=== PATIENT | male | born 1990 | race Caucasian/White ===

== ENCOUNTER 2020-11-23 21:44 | Emergency (ER) | payer MEDICAID ==
[2020-11-23] MEDS ORDERED: diphenhydrAMINE 50 MG/ML SDV IVPUSH ONE (22:26)
[2020-11-23] MEDS ORDERED: Benztropine 1 MG Tab PO ONE (23:10)
[2020-11-23] MEDS ORDERED: Acetaminophen 500 MG Tab PO ONE (23:13)
--- NOTE | 2020-11-23 23:14 | EDM.PDOC ---
ED HPI GENERAL MEDICAL PROBLEM - General Chief Complaint: General Time Seen by Provider: 11/23/20 22:13 - History of Present Illness INITIAL COMMENTS - FREE TEXT/NARRATIVE: CHIEF COMPLAINT(S): "Fucking pain" HISTORY OF PRESENT ILLNESS: This is a 22-year-old man and with a past medical history of anxiety, ADHD, delusional disorder, PTSD, and borderline personality disorder who comes to the emergency department with a chief complaint of "Fucking pain." The patient states that he is experiencing "Fucking pain" all over his body and feels like he is locking up and experiencing pain. He states that he does not know what it feels like. He cannot explain if it is dull, sharp, achy. He states that he thinks it is because of his benzodiazepines. He states that they have been slowly tapering off his clonazepam. He states that he is currently taking 0.5 mg twice a day. He has not missed any doses. He states that he follows up with [facility]. He states in addition to the clonazepam he takes Invega, prazosin, and clonidine. Patient denies any fever, chills, chest pain, shortness of breath, abdominal pain, nausea or vomiting. He denies any lower extremity edema. Denies any other symptoms. REVIEW OF SYSTEMS: Constitutional: Denies fever, chills. Eyes: Denies eye pain Ears, Nose, Mouth, & Throat: Denies earache Cardiovascular: Denies chest pain Respiratory: Denies shortness of breath Gastrointestinal: Denies Nausea, vomiting, diarrhea, hematochezia. Genitourinary: Denies hematuria Skin:Denies a rash MSK: Positive for total body pain. Neurological: Denies blurred vision Psychiatric: Denies SI, HI PAST MEDICAL HISTORY: As per history of present illness and as reviewed below otherwise noncontributory. SURGICAL HISTORY: As per history of present illness and as reviewed below otherwise noncontributory. SOCIAL HISTORY: As per history of present illness and as reviewed below otherwise noncontributory. FAMILY HISTORY: As per history of present illness and as reviewed below otherwise noncontributory. EXAMINATION OF ORGAN SYSTEMS/BODY AREAS: Constitutional: Blood pressure is 131/80, heart rate 98, respiratory rate 18 with an oxygen saturation of 96% on room air. Temperature 36.1 General: Young man who does not appear to be in acute distress but is moving constantly Psychiatric: Appropriate mood and affect. Denies SI, HI. Does not appear to be responding to internal stimuli. Cooperative. Eyes: No scleral icterus or conjunctival erythema pupils are 4 mm and reactive bilaterally. No nystagmus noted. ENMT: Moist mucous membranes. No pharyngeal erythema no lip smacking. Tongue protrudes midline. No tongue fasciculations or tremors. Cardiovascular: Regular, rate, and rhythm. No gallops, murmurs, or rubs. Bilateral upper extremity pulses symmetric and intact. No peripheral edema. No JVD. Respiratory: Lungs clear to auscultation bilaterally. No wheezes, rales, or rhonchi. Gastrointestinal: Soft, non-tender, non-distended. Normoactive bowel sounds Genitourinary: No suprapubic tenderness Musculoskeletal: Normal range of motion. The patient has rhythmic movements of his hands and lower legs where he keeps rubbing them together. Skin: No lesions or abrasions. Neurological: Alert, GCS 15 strength and sensation grossly intact in upper and lower extremities bilaterally. Gait is normal. MEDICAL DECISION MAKING AND COURSE IN THE ED WITH INTERPRETATION/REVIEW OF DIAGNOSTIC STUDIES: This is a 22-year-old man and with a past medical history of anxiety, ADHD, delusional disorder, PTSD, and borderline personality disorder who comes to the emergency department with body pain who is exhibiting signs of akathisia versus tardive dyskinesia. I do not believe this is clonazepam withdrawal as the patient is still taking clonazepam. He has not missed a dose. He does not appear to be in benzodiazepine withdrawal. At this time I do not believe any labs or imaging are indicated. We will treat the patient with Benadryl and reevaluate. We will provide the patient with Tylenol for pain relief. On reevaluation the patient reported significant improvement. He was no longer doing these involuntary movements. I did discuss him at this time that I would like him to take Cogentin twice a day for the next 2 days and follow-up with his psychiatrist for continued management of his medications. I did discuss with him that I do believe this is secondary to Invega. He requested Benadryl instead of Cogentin. Therefore I canceled the Cogentin and sent a prescription for Benadryl. He is to follow-up with them tomorrow. He was amenable to discharge at this time and had no further questions DISPOSITION: The patient was discharged home in stable condition. The patient will follow up with psychiatrist in 1 to 2 days CONDITION: Fair PROCEDURES: None FINAL IMPRESSION(S)/DIAGNOSES: 1. Acute akathisia likely secondary to medication 2. Acute involuntary movements, possible extrapyramidal symptoms secondary to medication Parish Badillo M.D. generalized Pain Score (Numeric/FACES): 8 - Related Data Allergies Allergy/AdvReac Type Severity Reaction Status Date / Time No Known Allergies Allergy Verified 11/23/20 22:02 Home Meds: Home Meds ClonazePAM [KlonoPIN] 0.5 mg PO DAILY 11/23/20 [History] Paliperidone Palmitate [Invega Sustenna] 156 mg IM ASDIRECTED 11/23/20 [History] Prazosin HCl [Prazosin] 5 mg PO DAILY 11/23/20 [History] diphenhydrAMINE [Benadryl] 25 mg PO TID #6 tablet 11/23/20 [Rx] Past Medical History HEENT History: Reports: None Cardiovascular History: Reports: None Respiratory History: Reports: None Gastrointestinal History: Reports: None Genitourinary History: Reports: None Musculoskeletal History: Reports: None Neurological History: Reports: Seizure Psychiatric History: Reports: Anxiety, PTSD, Other (See Below) Other Psychiatric History: delusion disorder. borderline personality Endocrine/Metabolic History: Reports: None Insulin Pump Model and Math Instructor: None Hematologic History: Reports: None Immunologic History: Reports: None Oncologic (Cancer) History: Reports: None Dermatologic History: Reports: None - Infectious Disease History Infectious Disease History: Reports: None - Past Surgical History Head Surgeries/Procedures: Reports: None Musculoskeletal Surgical History: Reports: Shoulder Surgery Social & Family History - Caffeine Use Caffeine Use: Reports: Soda - Recreational Drug Use Recreational Drug Use: Yes Drug Use in Last 12 Months: Yes Recreational Drug Type: Reports: Marijuana/Hashish ED ROS GENERAL - Review of Systems Review Of Systems: See Below ED EXAM, GENERAL - Physical Exam Exam: See Below Course - Vital Signs Last Recorded V/S: Last Vital Signs Temp 36.1 C 11/23/20 22:00 Pulse 73 11/23/20 23:26 Resp 14 11/23/20 23:26 BP 108/65 11/23/20 23:26 Pulse Ox 100 11/23/20 23:26 - Orders/Labs/Meds Meds: Medications Discontinued Medications Generic Name Dose Route Start Last Admin Trade Name Bipin PRN Reason Stop Dose Admin Acetaminophen 1,000 mg 11/23/20 23:13 11/23/20 23:25 Acetaminophen 500 Mg Tab PO 11/23/20 23:14 1,000 mg ONETIME ONE Administration Benztropine Mesylate 1 mg 11/23/20 23:10 11/23/20 23:25 Benztropine 1 Mg Tab PO 11/23/20 23:11 1 mg ONETIME ONE Administration Diphenhydramine HCl 50 mg 11/23/20 22:26 11/23/20 22:31 Diphenhydramine 50 Mg/Ml Sdv IVPUSH 11/23/20 22:27 50 mg ONETIME ONE Administration Departure - Departure Time of Disposition: 23:11 Disposition: Home, Self-Care 01 Condition: Fair Clinical Impression: Akathisia - Discharge Information *PRESCRIPTION DRUG MONITORING PROGRAM REVIEWED*: No *COPY OF PRESCRIPTION DRUG MONITORING REPORT IN PATIENT YEHUDA: No Prescriptions: diphenhydrAMINE [Benadryl] 25 mg PO TID #6 tablet Instructions: Tardive Dyskinesia, What You Need To Know About Antipsychotic Medicines Referrals: Leonardo Goncalves MD [Primary Care Provider] - Forms: ED Department Discharge Additional Instructions: Your evaluated today on an emergent basis. At this time I do believe the symptoms you are experiencing are likely secondary to the medication Invega. This could either be akathisia given that you are feeling anxious and felt like you have to keep moving. Or this is tardive dyskinesia. As discussed the treatment for tardive dyskinesia is to stop the medication. I want you to follow-up with [facility] tomorrow to discuss this medication and the side effects that it may be causing you. I did send you a prescription for Cogentin 1 mg twice a day. You are welcome to return to the emergency department with any worsening symptoms. [facility] [phone] The patient is informed of any results of their evaluation and diagnostic workup and all questions are answered. They are given discharge instructions and return precautions. The patient is stable for discharge. The patient states they understand and agree with the plan and that they will return if their symptoms get worse or if they have any new concerns. The following information is given to patients seen in the emergency department who are being discharged to home. This information is to outline your options for follow-up care. We provide all patients seen in our emergency department with a follow-up referral. The need for follow-up, as well as the timing and circumstances, are variable depending upon the specifics of your emergency department visit. If you don't have a primary care physician on staff, we will provide you with a referral. We always advise you to contact your personal physician following an emergency department visit to inform them of the circumstance of the visit and for follow-up with them and/or the need for any referrals to a consulting specialist. The emergency department will also refer you to a specialist when appropriate. This referral assures that you have the opportunity for follow-up care with a specialist. All of these measure are taken in an effort to provide you with optimal care, which includes your follow-up. Under all circumstances we always encourage you to contact your private physician who remains a resource for coordinating your care. When calling for follow-up care, please make the office aware that this follow-up is from your recent emergency room visit. If for any reason you are refused follow-up, please contact the Emergency Department at and asked to speak to the emergency department charge nurse. Sepsis Event Note (ED) - Evaluation Sepsis Screening Result: No Definite Risk - Focused Exam Vital Signs: Vital Signs Temp Pulse Resp BP Pulse Ox 11/23/20 23:26 73 14 108/65 100 11/23/20 22:00 36.1 C 98 18 131/80 96
== END 2020-11-23 23:27 | disposition home or self-care (01) ==
LOC: MW.ED 21:44
DX: G25.71 Drug induced akathisia (principal); T42.4X5A Adverse effect of benzodiazepines, initial encounter
CPT/HCPCS: 96374; 99283; A9270; J1200

== ENCOUNTER 2020-11-28 22:01 | Emergency (ER) | payer MEDICAID ==
[2020-11-28] MEDS ORDERED: Lidocaine 2% Viscous Solution 15 ML Cup ONE (23:00)
[2020-11-28] MEDS ORDERED: Lidocaine 1% PF 2 ML SDV INJECT ONE (23:16)
[2020-11-28] MEDS ORDERED: Amoxicillin/Clavulanate K 875-125 MG Tab PO ONE (23:27)
--- NOTE | 2020-11-28 23:46 | EDM.PDOC ---
ED HPI GENERAL MEDICAL PROBLEM - General Chief Complaint: General Stated Complaint: EXPOSED NERVE ON LT SIDE OF MOUTH Time Seen by Provider: 11/28/20 22:37 - History of Present Illness INITIAL COMMENTS - FREE TEXT/NARRATIVE: CHIEF COMPLAINT(S): Dental pain HISTORY OF PRESENT ILLNESS: This is a 30-year-old man with a past medical history of anxiety, ADHD, delusional disorder, PTSD and borderline personality disorder who comes to the emergency department with dental pain. The patient states that he needs his tooth checked. He states that he is experiencing 10 out of 10 pain which he describes as sharp pins into his face. He denies any swelling, blurry vision, loss of vision, fever, chills, pain behind his ear. He denies any nausea or vomiting. He states that he was put on amoxicillin for 7 days and finished it approximately 5 days ago. He states that he has not made an appointment with a dentist but knows that he needs to make 1. He has not yet tried any other pain medication for relief. He denies any radiation of this pain. He states that he is not getting any relief. Any touching of the tooth makes it worse. There are no relieving factors. REVIEW OF SYSTEMS: Constitutional: Denies fever, chills. Eyes: Denies eye pain Ears, Nose, Mouth, & Throat positive for left upper dental pain. Denies sore throat, earache, runny nose, jaw swelling, posterior auricular tenderness Skin:Denies a rash MSK: Denies joint pain Neurological: Denies blurred vision, numbness, tingling, weakness PAST MEDICAL HISTORY: As per history of present illness and as reviewed below otherwise noncontributory. SURGICAL HISTORY: As per history of present illness and as reviewed below otherwise noncontributory. SOCIAL HISTORY: As per history of present illness and as reviewed below otherwise noncontributory. FAMILY HISTORY: As per history of present illness and as reviewed below otherwise noncontributory. EXAMINATION OF ORGAN SYSTEMS/BODY AREAS: Constitutional: Blood pressure was 142/88, heart rate 95, respiratory rate 19 with an oxygen saturation of 97% on room air. Temperature 36.3 General: Young man who does not appear to be in acute distress psychiatric: Appropriate mood and affect. Eyes: No scleral icterus or conjunctival erythema pupils are equal round and reactive to light. Extraocular movements intact ENMT: Moist mucous membranes. No pharyngeal erythema erythema or evidence of any periapical abscess. The patient does have a dental carry with his tooth missing on the left upper posterior tooth. This area is tender to palpation. Otherwise no buccal erythema or abnormality. There is no posterior regular tenderness to suggest mastoiditis Cardiovascular: Regular, rate, and rhythm. No gallops, murmurs, or rubs. Bilateral upper extremity pulses symmetric and intact. No peripheral edema. No JVD. Respiratory: Lungs clear to auscultation bilaterally. No wheezes, rales, or rhonchi. Skin: No lesions or abrasions. Neurological: Alert, GCS 15 MEDICAL DECISION MAKING AND COURSE IN THE ED WITH INTERPRETATION/REVIEW OF DIAGNOSTIC STUDIES: This is a 30-year-old man with a past medical history of mental illness who presents to the emergency department with a dental caries and dental pain without any other evidence of mastoiditis or abnormality. The patient's vitals are normal. I did discuss with the patient that he would switch his antibiotic to Augmentin and discussed that we could do a dental block for temporary relief. He was amenable to this plan. I did discuss with him that this is all temporary as the only fix for this is him needing to go to a dentist. Given the amount of the tooth that is missing I did discuss placing dental cement on at least to cover the area that is exposed. Therefore we did do this. Dental block Using a 27-gauge needle and 1+ lidocaine the needle was inserted on the lateral side the second tooth from the back on the left it was advanced posteriorly until bone was hit. Then approximately 2 to 3 cc of lidocaine were injected. Complications none known After a period of observation the patient reported pain improvement. I discussed with him that we would send him with some cottonball soaked in the cane. As discussed I did provide him with antibiotics through [facility] for free. He is to use Tylenol and Motrin for pain relief and contact a dentist as soon as possible to treat this tooth. DISPOSITION: The patient was discharged home in stable condition. The patient will follow up with dentistry in as soon as possible CONDITION: Fair PROCEDURES: Dental Block FINAL IMPRESSION(S)/DIAGNOSES: 1. Acute on chronic dental pain secondary to dental clement 2. Acute possible dental abscess Parish Badillo M.D. - Related Data Allergies Allergy/AdvReac Type Severity Reaction Status Date / Time No Known Allergies Allergy Verified 11/30/20 14:30 Home Meds: Home Meds ClonazePAM [KlonoPIN] 0.5 mg PO DAILY 11/23/20 [History] Paliperidone Palmitate [Invega Sustenna] 156 mg IM ASDIRECTED 11/23/20 [History] Prazosin HCl [Prazosin] 5 mg PO DAILY 11/23/20 [History] diphenhydrAMINE [Benadryl] 25 mg PO TID #6 tablet 11/23/20 [Rx] hydrOXYzine HCL [Hydroxyzine HCl] 25 mg PO TID PRN 7 Days #21 tablet 11/30/20 [Rx] Past Medical History HEENT History: Reports: None Cardiovascular History: Reports: None Respiratory History: Reports: None Gastrointestinal History: Reports: None Genitourinary History: Reports: None Musculoskeletal History: Reports: None Neurological History: Reports: Seizure Psychiatric History: Reports: Anxiety, PTSD, Other (See Below) Other Psychiatric History: delusion disorder. borderline personality Endocrine/Metabolic History: Reports: None Insulin Pump Model and Ski Patroller: None Hematologic History: Reports: None Immunologic History: Reports: None Oncologic (Cancer) History: Reports: None Dermatologic History: Reports: None - Infectious Disease History Infectious Disease History: Reports: None - Past Surgical History Head Surgeries/Procedures: Reports: None Musculoskeletal Surgical History: Reports: Shoulder Surgery Social & Family History - Family History Family Medical History: No Pertinent Family History - Caffeine Use Caffeine Use: Reports: Energy Drinks - Recreational Drug Use Recreational Drug Use: No ED ROS GENERAL - Review of Systems Review Of Systems: See Below ED EXAM, GENERAL - Physical Exam Exam: See Below Course - Vital Signs Last Recorded V/S: Last Vital Signs Temp 36.3 C 11/28/20 22:08 Pulse 95 11/28/20 22:08 Resp 19 11/28/20 22:08 BP 142/88 H 11/28/20 22:08 Pulse Ox 97 11/28/20 22:08 - Orders/Labs/Meds Meds: Medications Discontinued Medications Generic Name Dose Route Start Last Admin Trade Name Freq PRN Reason Stop Dose Admin Amoxicillin/Clavulanate Potassium 1 tab 11/28/20 23:27 11/28/20 23:40 Amoxicillin/Clavulanate K 875-125 Mg Tab PO 11/28/20 23:28 1 tab ONETIME ONE Administration Lidocaine HCl 5 ml 11/28/20 22:58 11/28/20 23:06 Lidocaine 1% 5 Ml Sdv INJECT 11/28/20 22:59 5 ml ONETIME ONE Administration Lidocaine HCl Confirm 11/28/20 23:00 11/28/20 23:19 Lidocaine 1% 5 Ml Sdv Administered 11/28/20 23:01 Not Given Dose 5 ml .ROUTE .STK-MED ONE Lidocaine HCl Confirm 11/28/20 23:00 11/28/20 23:07 Lidocaine 2% Viscous Solution 15 Ml Cup Administered 11/28/20 23:01 15 ml Dose Administration 15 ml .ROUTE .STK-MED ONE Lidocaine HCl 5 ml 11/28/20 23:12 11/28/20 23:19 Lidocaine 1% 5 Ml Sdv INJECT 11/28/20 23:13 Not Given ONETIME ONE Lidocaine HCl 2 ml 11/28/20 23:16 11/28/20 23:41 Lidocaine 1% Pf 2 Ml Sdv INJECT 11/28/20 23:17 Not Given ONETIME ONE Lidocaine HCl 15 ml 11/29/20 00:10 Lidocaine 2% Viscous Solution 15 Ml Cup PO 11/29/20 00:11 ASDIRECTED ONE Departure - Departure Time of Disposition: 23:46 Disposition: Home, Self-Care 01 Condition: Fair Clinical Impression: Dental caries - Discharge Information *PRESCRIPTION DRUG MONITORING PROGRAM REVIEWED*: No *COPY OF PRESCRIPTION DRUG MONITORING REPORT IN PATIENT YEHUDA: No Instructions: Dental Abscess Referrals: Leonardo Goncalves MD [Primary Care Provider] - Forms: ED Department Discharge Additional Instructions: You were evaluated today on an emergent basis. At this time you do have evidence of dental caries which are cavities of your teeth. At this time we did provide a dental block which did relieve some of the pain. I do recommend that you use the lidocaine balls that we discharge you with for pain relief. You placed this just between your lip and your gum near the affected tooth. I recommend you use Tylenol and Motrin for pain relief and it is extremely important that you follow-up with a dentist this week. In addition I did prescribe you Augmentin which can be taken twice a day for the next 7 days. I recommend that you follow-up with a dentist because prolonged antibiotic use is going to hurt you more than it is going to help you. Return with any new or worsening symptoms [facility] [address] [place] [address] [facility] [address] [place] [address] The patient is informed of any results of their evaluation and diagnostic workup and all questions are answered. They are given discharge instructions and return precautions. The patient is stable for discharge. The patient states they understand and agree with the plan and that they will return if their symptoms get worse or if they have any new concerns. The following information is given to patients seen in the emergency department who are being discharged to home. This information is to outline your options for follow-up care. We provide all patients seen in our emergency department with a follow-up referral. The need for follow-up, as well as the timing and circumstances, are variable depending upon the specifics of your emergency department visit. If you don't have a primary care physician on staff, we will provide you with a referral. We always advise you to contact your personal physician following an emergency department visit to inform them of the circumstance of the visit and for follow-up with them and/or the need for any referrals to a consulting specialist. The emergency department will also refer you to a specialist when appropriate. This referral assures that you have the opportunity for follow-up care with a specialist. All of these measure are taken in an effort to provide you with optimal care, which includes your follow-up. Under all circumstances we always encourage you to contact your private physician who remains a resource for coordinating your care. When calling for follow-up care, please make the office aware that this follow-up is from your recent emergency room visit. If for any reason you are refused follow-up, please contact the [facility] Emergency Department at and asked to speak to the emergency department charge nurse. Sepsis Event Note (ED) - Evaluation Sepsis Screening Result: No Definite Risk
[2020-11-29] MEDS ORDERED: Lidocaine 2% Viscous Solution 15 ML Cup PO ONE (00:10)
== END 2020-11-28 23:51 | disposition home or self-care (01) ==
LOC: MW.ED 22:01
DX: K02.9 Dental caries, unspecified (principal)
CPT/HCPCS: 64400; 99283; A9270

== ENCOUNTER 2020-11-30 14:10 | Emergency (ER) | payer MEDICAID ==
--- NOTE | 2020-11-30 14:44 | EDM.PDOC ---
ED HPI GENERAL MEDICAL PROBLEM - General Chief Complaint: Skin Complaint Stated Complaint: POSS CHICKEN POX/SHINGLES Time Seen by Provider: 11/30/20 14:32 - History of Present Illness INITIAL COMMENTS - FREE TEXT/NARRATIVE: 30-year-old male with a history of ADHD and anxiety presenting with an itchy rash. Patient reports that over the last 3 days he has had gradually spreading itchy rash consisting of scattered red bumps. No fevers they burn when he scratches them but itch otherwise. Patient otherwise feels well no nausea no vomiting no lightheadedness or dizziness. No known sick contacts. Patient lives with his mother and she has no similar symptoms. His mother was concerned about potential shingles and recommended that he come to the ER. Arm Pain Score (Numeric/FACES): 8 - Related Data Allergies Allergy/AdvReac Type Severity Reaction Status Date / Time No Known Allergies Allergy Verified 11/30/20 14:30 Home Meds: Home Meds ClonazePAM [KlonoPIN] 0.5 mg PO DAILY 11/23/20 [History] Paliperidone Palmitate [Invega Sustenna] 156 mg IM ASDIRECTED 11/23/20 [History] Prazosin HCl [Prazosin] 5 mg PO DAILY 11/23/20 [History] diphenhydrAMINE [Benadryl] 25 mg PO TID #6 tablet 11/23/20 [Rx] hydrOXYzine HCL [Hydroxyzine HCl] 25 mg PO TID PRN 7 Days #21 tablet 11/30/20 [Rx] Past Medical History HEENT History: Reports: None Cardiovascular History: Reports: None Respiratory History: Reports: None Gastrointestinal History: Reports: None Genitourinary History: Reports: None Musculoskeletal History: Reports: None Neurological History: Reports: Seizure Psychiatric History: Reports: Anxiety, PTSD, Other (See Below) Other Psychiatric History: delusion disorder. borderline personality Endocrine/Metabolic History: Reports: None Insulin Pump Model and Planetarium Sky Show Technician: None Hematologic History: Reports: None Immunologic History: Reports: None Oncologic (Cancer) History: Reports: None Dermatologic History: Reports: None - Infectious Disease History Infectious Disease History: Reports: None - Past Surgical History Head Surgeries/Procedures: Reports: None Musculoskeletal Surgical History: Reports: Shoulder Surgery Social & Family History - Family History Family Medical History: No Pertinent Family History - Caffeine Use Caffeine Use: Reports: Energy Drinks ED ROS GENERAL - Review of Systems Review Of Systems: See Below Free Text/Narrative/Comment: General: No fever. Skin: Per HPI Neck: No neck stiffness. Respiratory: No shortness of breath. Cardiac: No chest pain. Gastrointestinal: No nausea, vomiting or abdominal pain. Musculoskeletal: No myalgias/arthralgias. Neurologic: No headache. ED EXAM, SKIN/RASH Exam: See Below Text/Narrative:: General Appearance: No acute distress, appears comfortable Skin: Scattered raised erythematous papules some with signs of prior excoriation most are approximately 5 mm to 1 cm in size. There are scattered over the body they do have some clustering particularly in the lower back. No overlying erythema no drainage no bleeding no discharge. HEENT: Normocephalic/atraumatic, sclera anicteric, mucous membranes moist Neck: Normal range of motion Back: Normal Musculoskeletal: No edema or tenderness Neurologic: Awake, alert, no obvious deficits, moving all extremities Psychiatric: Appropriate, cooperative Course - Vital Signs Last Recorded V/S: Last Vital Signs Temp 97.2 F 11/30/20 14:31 Pulse 70 11/30/20 14:31 Resp 16 11/30/20 14:31 BP 134/71 11/30/20 14:31 Pulse Ox 96 11/30/20 14:31 Departure - Departure Time of Disposition: 14:41 Disposition: Home, Self-Care 01 Condition: Good Clinical Impression: Bug bite - Discharge Information *PRESCRIPTION DRUG MONITORING PROGRAM REVIEWED*: Not Applicable *COPY OF PRESCRIPTION DRUG MONITORING REPORT IN PATIENT YEHUDA: Not Applicable Prescriptions: hydrOXYzine HCL [Hydroxyzine HCl] 25 mg PO TID PRN 7 Days #21 tablet PRN Reason: Itching Instructions: Insect Bite, Adult, [id number] Referrals: Leonardo Goncalves MD [Primary Care Provider] - Forms: ED Department Discharge Additional Instructions: Your symptoms should improve over the next few days as long as you are not continuing to be exposed to bedbugs. It is impossible to tell based solely on the bite if the bite is due to a bedbug. However bedbugs can typically be seen on the bed sheets. It is common for multiple people in the household to have the symptoms if these bites are in fact due to bedbugs. You can take the hydroxyzine as needed for itching up to 3 times a day. It is safe to put a little bit of topical Benadryl cream on any areas that are particularly itchy. Please be sure to follow-up with your primary care doctor. The following information is given to patients seen in the emergency department who are being discharged to home. This information is to outline your options for follow-up care. We provide all patients seen in our emergency department with a follow-up referral. The need for follow-up, as well as the timing and circumstances, are variable depending upon the specifics of your emergency department visit. If you don't have a primary care physician on staff, we will provide you with a referral. We always advise you to contact your personal physician following an emergency department visit to inform them of the circumstance of the visit and for follow-up with them and/or the need for any referrals to a consulting speci alist. The emergency department will also refer you to a specialist when appropriate. This referral assures that you have the opportunity for follow-up care with a specialist. All of these measure are taken in an effort to provide you with optimal care, which includes your follow-up. Under all circumstances we always encourage you to contact your private physician who remains a resource for coordinating your care. When calling for follow-up care, please make the office aware that this follow-up is from your recent emergency room visit. If for any reason you are refused follow-up, please contact the [facility] Emergency Department at and asked to speak to the emergency department charge nurse. Sepsis Event Note (ED) - Focused Exam Vital Signs: Vital Signs Temp Pulse Resp BP Pulse Ox 11/30/20 14:31 97.2 F 70 16 134/71 96 - Assessment/Plan Assessment:: 22-year-old male presenting with signs and symptoms that are most consistent with insect bites. Bedbugs possible but mother with similar symptoms. No signs of overlying infectious process. Patient well-appearing without any other systemic symptoms. He has been taking Benadryl twice daily with minimal relief. Recommend switching to hydroxyzine. Patient can do local minimal cream for the itching as needed as well. Return precautions discussed and understood patient will follow up with primary care. Patient has no signs of overlying cellulitis abscess or other acute infective process. No mucosal involvement.
== END 2020-11-30 14:58 | disposition home or self-care (01) ==
LOC: MW.ED 14:10
DX: S30.860A Insect bite (nonvenomous) of lower back and pelvis, initial encounter (principal); S40.861A Insect bite (nonvenomous) of right upper arm, initial encounter; W57.XXXA Bitten or stung by nonvenomous insect and other nonvenomous arthropods, initial encounter
CPT/HCPCS: 99283

== ENCOUNTER 2020-12-14 16:04 | Emergency (ER) | payer MEDICAID ==
--- NOTE | 2020-12-14 16:12 | EDM.PDOC ---
<Mauricio Lowery - Last Filed: 12/14/20 18:30> ED HPI GENERAL MEDICAL PROBLEM - General Chief Complaint: Behavioral/Psych Stated Complaint: mental issues Time Seen by Provider: 12/14/20 16:05 - History of Present Illness INITIAL COMMENTS - FREE TEXT/NARRATIVE: History of present illness: [] The patient's mother called law enforcement because he was planning to take an overdose of multiple substances and drink alcohol until he . He says his mind duration and are troublesome so much he cannot get it straight. He is off his Concerta. He has no current immediate plans to see a psychiatrist. He wa nts to. He says his mind needs to stop racing. He does not deny that he would kill himself at the time I see him. He has uncontrollable movements of his legs as well which he considered side effect of his prior medications. I called the mother and she said that when he gets his antipsychotic medicine he gets worse. She said he gets back check crazy. The mother said he is better near the end of his dose. Before he gets shots. She says 12 medicines failed he had all kind of problems in [place] so he moved here. Unfortunately they have not gotten the records from those doctors who had failed medication attempts and I explained her they need to get him as soon as they can because otherwise we may try the same medicines. Review of systems: As per history of present illness and below otherwise all systems reviewed and negative. Past medical history: As per history of present illness and as reviewed below otherwise noncontributory. Surgical history: As per history of present illness and as reviewed below otherwise noncontributory. Social history: No reported history of drug or alcohol abuse. Family history: As per history of present illness and as reviewed below otherwise noncontributory. Physical exam: Constitutional - well developed, well-nourished and in no acute distress HEENT - normocephalic, no evidence of trauma - external nose and mouth normal - no mass in neck and no JVD - mucosae moist EYES - full EOM, PERRL, no icterus - no evidence of inflammation, injection, or drainage Respiratory - no respiratory distress, equal bilateral expansion, lungs clear to auscultation and no abnormal lung sounds Cardiovascular - Regular Rhythm with S1 and S2 appreciated and no murmur, gallop or rub. GI - abdomen soft without distension or organomegaly - normal bowel sounds - no guard or rebound Musculoskeletal no gross deformity of long bones or joints - no tenderness, swelling or edema Neurologic -uncontrolled fidgety movements of both legs. Alert and oriented times four - CN II-XII grossly intact - motor sensory and coordination symmetrically normal Psychiatric - appropriate mood and affect with normal thought content . He did say to his mother that he would kill himself and he did say that he has a plan. Hematologic - No petechiae or purpura - mucosa appropriate color and sclera not pale - normal nail bed color and refill Integument - no rash or evidence of trauma - normal turgor Diagnostics: [] Therapeutics: [] Impression: [] Plan: [] Definitive disposition and diagnosis as appropriate pending reevaluation and review of above. Left shoulder Pain Score (Numeric/FACES): 8 - Related Data Allergies Allergy/AdvReac Type Severity Reaction Status Date / Time No Known Allergies Allergy Verified 12/14/20 16:28 Home Meds: Home Meds ClonazePAM [KlonoPIN] 0.5 mg PO DAILY 11/23/20 [History] Paliperidone Palmitate [Invega Sustenna] 156 mg IM ASDIRECTED 11/23/20 [History] Prazosin HCl [Prazosin] 5 mg PO DAILY 11/23/20 [History] diphenhydrAMINE [Benadryl] 25 mg PO TID #6 tablet 11/23/20 [Rx] hydrOXYzine HCL [Hydroxyzine HCl] 25 mg PO TID PRN 7 Days #21 tablet 11/30/20 [Rx] Past Medical History HEENT History: Reports: None Cardiovascular History: Reports: None Respiratory History: Reports: None Gastrointestinal History: Reports: None Genitourinary History: Reports: None Musculoskeletal History: Reports: None Neurological History: Reports: Seizure Psychiatric History: Reports: ADHD, Anxiety, PTSD, Other (See Below) Other Psychiatric History: delusion disorder. borderline personality Endocrine/Metabolic History: Reports: None Insulin Pump Model and Switch Technician: None Hematologic History: Reports: None Immunologic History: Reports: None Oncologic (Cancer) History: Reports: None Dermatologic History: Reports: None - Infectious Disease History Infectious Disease History: Reports: Chicken Pox Other Infectious Disease History: Possible chicken pox as a child - Past Surgical History Head Surgeries/Procedures: Reports: None Musculoskeletal Surgical History: Reports: Shoulder Surgery Social & Family History - Family History Family Medical History: No Pertinent Family History - Caffeine Use Caffeine Use: Reports: Energy Drinks, Soda ED ROS GENERAL - Review of Systems Review Of Systems: Comprehensive ROS is negative, except as noted in HPI. ED EXAM, GENERAL - Physical Exam Exam: See Below Free Text/Narrative:: Physical exam is in the HPI #1 Interpretation EKG Interpretation Comments: EKG sinus tachycardia heart rate 107 TN 170 axis 47 late transition R wave in the precordium no ST or T changes of significance impression no acute injury Course - Vital Signs Text/Narrative:: The patient was calm and relaxed in fact sleeping part of the time after he was given medications here. I spoke with [facility] and they do not have a male psych bed. I spoke with [facility] and they do not have a male psych bed I advanced practice practitioner spoke with the intake people at [facility] and they have a bed but will not accept our presentation until we know the Covid status of the patient. That is pending at 1831 hrs. Departure - Departure Disposition: DC/Tfer to Psych Hosp/Unit 65 Condition: Good Clinical Impression: Mood disorder, Depressive disorder, Suicidal ideation, At risk for intentional self-harm Schizophrenia Qualifiers: Schizophrenia type: unspecified Qualified Code(s): F20.9 - Schizophrenia, unspecified MDD (major depressive disorder) Qualifiers: Major depression recurrence: recurrent Active/Remission status: currently active Major depression episode severity: severe Psychotic features: with psychotic features Qualified Code(s): F33.3 - Major depressive disorder, recurrent, severe with psychotic symptoms - Discharge Information Referrals: PCP,None [Primary Care Provider] - Forms: ED Department Discharge <Stanton Mcmillan - Last Filed: 12/14/20 21:01> ED HPI GENERAL MEDICAL PROBLEM - History of Present Illness INITIAL COMMENTS - FREE TEXT/NARRATIVE: 8:56 PM: Signout received at [address] Lowery. This is a 30-year-old gentleman with a history significant for schizophrenia who receives monthly Invega shots in [place] who presents ER today by law enforcement secondary to patient making suicidal ideation comments to his mother. According to his mother patient had reported that he want to overdose on alcohol and Prozac and then hang himself. While in the ED, the patient initially received Geodon, Ativan and Benadryl secondary to agitation. Patient has been monitored in the ED now for approximately 5 hours without any concerns of aggressive or agitated behavior. Patient has been monitored with one-on-one monitoring secondary to his suicidal ideation. Patient was reevaluated by me multiple times throughout his ED visit and is still resting comfortably and without any complaints. Patient reports he still having thoughts about harm himself. Patient denies any recent fevers, shakes, chills, nausea, vomiting, diarrhea, dysuria, frequency, urgency, chest pain, shortness of breath. Patient's labs were all unremarkable with a normal CBC, CMP, urine drug screen was negative. Patient's alcohol level was elevated at 159 and has been approximately 4-1/2 hours ago. Case was discussed with Dr. Quijano at [facility]. She has agreed to assist this with accepting patient for transfer pending committal paperwork and approval by the charge nurse there. Papers have been filled out for committal as well as faxed. ED ROS GENERAL - Review of Systems Review Of Systems: See Below ED EXAM, GENERAL - Physical Exam Exam: See Below Course - Vital Signs Last Recorded V/S: Last Vital Signs Temp 97.4 F 12/14/20 20:11 Pulse 116 H 12/14/20 20:30 Resp 24 H 12/14/20 20:30 BP 108/56 L 12/14/20 20:33 Pulse Ox 97 12/14/20 20:30 - Orders/Labs/Meds Orders: Active Orders 24 hr Category Date Time Status EKG Documentation Completion [RC] AM Care 12/14/20 16:26 Active Sodium Chloride 0.9% [Saline Flush] Med 12/14/20 16:26 Active 10 ml FLUSH ASDIRECTED PRN Sodium Chloride 0.9% [Saline Flush] Med 12/14/20 16:26 Active 2.5 ml FLUSH ASDIRECTED PRN Saline Lock Insert [OM.PC] Stat Oth 12/14/20 16:26 Ordered Medication Orders Sodium Chloride (Sodium Chloride 0.9% 10 Ml Syringe) 10 ml FLUSH ASDIRECTED PRN PRN Reason: Keep Vein Open Sodium Chloride (Sodium Chloride 0.9% 2.5 Ml Syringe) 2.5 ml FLUSH ASDIRECTED PRN PRN Reason: Keep Vein Open Labs: Laboratory Tests 12/14/20 12/14/20 12/14/20 Range/Units 16:50 16:50 16:55 WBC 9.08 (4.0-11.0) K/uL RBC 5.06 (4.50-5.90) M/uL Hgb 16.4 (13.0-17.0) g/dL Hct 46.5 (38.0-50.0) % MCV 91.9 (80.0-98.0) fL MCH 32.4 H (27.0-32.0) pg MCHC 35.3 (31.0-37.0) g/dL RDW Std Deviation 44.9 (28.0-62.0) fl RDW Coeff of Marko 14 (11.0-15.0) % Plt Count 268 (150-400) K/uL MPV 10.50 (7.40-12.00) fL Neut % (Auto) 59.2 (48.0-80.0) % Lymph % (Auto) 30.8 (16.0-40.0) % Hopkins % (Auto) 7.6 (0.0-15.0) % Eos % (Auto) 2.1 (0.0-7.0) % Baso % (Auto) 0.3 (0.0-1.5) % Neut # (Auto) 5.4 (1.4-5.7) K/uL Lymph # (Auto) 2.8 H (0.6-2.4) K/uL Hopkins # (Auto) 0.7 (0.0-0.8) K/uL Eos # (Auto) 0.2 (0.0-0.7) K/uL Baso # (Auto) 0.0 (0.0-0.1) K/uL Nucleated RBC % 0.0 /100WBC Nucleated RBCs # 0 K/uL Sodium (136-148) mmol/L Potassium (3.5-5.1) mmol/L Chloride (98-107) mmol/L Carbon Dioxide (21.0-32.0) mmol/L BUN (7.0-18.0) mg/dL Creatinine (0.8-1.3) mg/dL Est Cr Clr Drug Dosing mL/min Estimated GFR (MDRD) ml/min Glucose (74-106) mg/dL Calcium (8.5-10.1) mg/dL Total Bilirubin (0.2-1.0) mg/dL AST (15-37) IU/L ALT (14-63) IU/L Alkaline Phosphatase (46-116) U/L Total Protein (6.4-8.2) g/dL Albumin (3.4-5.0) g/dL Globulin (2.6-4.0) g/dL Albumin/Globulin Ratio (0.9-1.6) TSH, Ultra Sensitive (0.36-3.74) uIU/mL Urine Color YELLOW Urine Appearance CLEAR Urine pH 6.0 (5.0-8.0) Ur Specific [place] <= 1.005 (1.001-1.035) Urine Protein NEGATIVE (NEGATIVE) mg/dL Urine Glucose (UA) NEGATIVE (NEGATIVE) mg/dL Urine Ketones NEGATIVE (NEGATIVE) mg/dL Urine Occult Blood NEGATIVE (NEGATIVE) Urine Nitrite NEGATIVE (NEGATIVE) Urine Bilirubin NEGATIVE (NEGATIVE) Urine Urobilinogen 0.2 (<2.0) EU/dL Ur Leukocyte Esterase NEGATIVE (NEGATIVE) Salicylates (0-20) mg/dL Urine Opiates Screen NEGATIVE (NEGATIVE) Ur Oxycodone Screen NEGATIVE (NEGATIVE) Urine Methadone Screen NEGATIVE (NEGATIVE) Acetaminophen ug/mL Ur Barbiturates Screen NEGATIVE (NEGATIVE) Ur Phencyclidine Scrn NEGATIVE (NEGATIVE) Ur Amphetamine Screen NEGATIVE (NEGATIVE) U Methamphetamines Scrn NEGATIVE (NEGATIVE) U Benzodiazepines Scrn NEGATIVE (NEGATIVE) U Cocaine Metab Screen NEGATIVE (NEGATIVE) U Marijuana (THC) Screen NEGATIVE (NEGATIVE) Ethyl Alcohol mg/dL SARS-CoV-2 RNA (AUNG) (NEGATIVE) 12/14/20 12/14/20 Range/Units 16:55 18:48 WBC (4.0-11.0) K/uL RBC (4.50-5.90) M/uL Hgb (13.0-17.0) g/dL Hct (38.0-50.0) % MCV (80.0-98.0) fL MCH (27.0-32.0) pg MCHC (31.0-37.0) g/dL RDW Std Deviation (28.0-62.0) fl RDW Coeff of Marko (11.0-15.0) % Plt Count (150-400) K/uL MPV (7.40-12.00) fL Neut % (Auto) (48.0-80.0) % Lymph % (Auto) (16.0-40.0) % Hopkins % (Auto) (0.0-15.0) % Eos % (Auto) (0.0-7.0) % Baso % (Auto) (0.0-1.5) % Neut # (Auto) (1.4-5.7) K/uL Lymph # (Auto) (0.6-2.4) K/uL Hopkins # (Auto) (0.0-0.8) K/uL Eos # (Auto) (0.0-0.7) K/uL Baso # (Auto) (0.0-0.1) K/uL Nucleated RBC % /100WBC Nucleated RBCs # K/uL Sodium 140 (136-148) mmol/L Potassium 4.1 (3.5-5.1) mmol/L Chloride 104 (98-107) mmol/L Carbon Dioxide 22.6 (21.0-32.0) mmol/L BUN 12 (7.0-18.0) mg/dL Creatinine 0.8 (0.8-1.3) mg/dL Est Cr Clr Drug Dosing 159.83 mL/min Estimated GFR (MDRD) > 60.0 ml/min Glucose 92 (74-106) mg/dL Calcium 8.5 (8.5-10.1) mg/dL Total Bilirubin 0.2 (0.2-1.0) mg/dL AST 19 (15-37) IU/L ALT 50 (14-63) IU/L Alkaline Phosphatase 113 (46-116) U/L Total Protein 7.3 (6.4-8.2) g/dL Albumin 3.9 (3.4-5.0) g/dL Globulin 3.4 (2.6-4.0) g/dL Albumin/Globulin Ratio 1.1 (0.9-1.6) TSH, Ultra Sensitive 0.37 (0.36-3.74) uIU/mL Urine Color Urine Appearance Urine pH (5.0-8.0) Ur Specific [place] (1.001-1.035) Urine Protein (NEGATIVE) mg/dL Urine Glucose (UA) (NEGATIVE) mg/dL Urine Ketones (NEGATIVE) mg/dL Urine Occult Blood (NEGATIVE) Urine Nitrite (NEGATIVE) Urine Bilirubin (NEGATIVE) Urine Urobilinogen (<2.0) EU/dL Ur Leukocyte Esterase (NEGATIVE) Salicylates 4.4 (0-20) mg/dL Urine Opiates Screen (NEGATIVE) Ur Oxycodone Screen (NEGATIVE) Urine Methadone Screen (NEGATIVE) Acetaminophen <2.0 ug/mL Ur Barbiturates Screen (NEGATIVE) Ur Phencyclidine Scrn (NEGATIVE) Ur Amphetamine Screen (NEGATIVE) U Methamphetamines Scrn (NEGATIVE) U Benzodiazepines Scrn (NEGATIVE) U Cocaine Metab Screen (NEGATIVE) U Marijuana (THC) Screen (NEGATIVE) Ethyl Alcohol 159 mg/dL SARS-CoV-2 RNA (AUNG) NEGATIVE (NEGATIVE) Meds: Medications Generic Name Dose Route Start Last Admin Trade Name Freq PRN Reason Stop Dose Admin Sodium Chloride 10 ml 12/14/20 16:26 Sodium Chloride 0.9% 10 Ml Syringe FLUSH ASDIRECTED PRN Keep Vein Open Sodium Chloride 2.5 ml 12/14/20 16:26 Sodium Chloride 0.9% 2.5 Ml Syringe FLUSH ASDIRECTED PRN Keep Vein Open Discontinued Medications Generic Name Dose Route Start Last Admin Trade Name Freq PRN Reason Stop Dose Admin Diphenhydramine HCl 50 mg 12/14/20 16:25 12/14/20 16:53 Diphenhydramine 50 Mg/Ml Sdv IM 12/14/20 16:26 50 mg ONETIME ONE Administration Lorazepam 2 mg 12/14/20 16:24 12/14/20 16:53 Lorazepam 2 Mg/Ml Sdv IM 12/14/20 16:25 2 mg ONETIME ONE Administration Sterile Water 1.2 ml 12/14/20 16:22 12/14/20 16:54 Water For Injection, Sterile 20 Ml Sdv INJECT 12/14/20 16:23 1.2 ml ONETIME ONE Administration Ziprasidone 10 mg 12/14/20 16:22 12/14/20 16:54 Ziprasidone Mesylate 20 Mg Vial IM 12/14/20 16:23 10 mg ONETIME ONE Administration Departure - Departure Time of Disposition: 21:00 Condition: Good Sepsis Event Note (ED) - Focused Exam Vital Signs: Vital Signs Temp Pulse Resp BP Pulse Ox 12/14/20 20:33 108/56 L 12/14/20 20:30 116 H 24 H 87/31 L 97 12/14/20 20:11 97.4 F 12/14/20 20:05 115 H 22 H 108/50 L 92 L 12/14/20 19:35 119 H 22 H 112/51 L 94 L 12/14/20 19:05 113 H 113/45 L 95 12/14/20 18:35 112 H 101/46 L 94 L 12/14/20 18:22 112 H 96/50 L 90 L 12/14/20 18:05 112 H 103/51 L 96 12/14/20 17:35 97 104/60 91 L 12/14/20 17:05 97 118/61 93 L 12/14/20 16:35 89 108/45 L 99 12/14/20 16:05 97.7 F 111 H 18 131/82 95
[2020-12-14] MEDS ORDERED: Water For Injection, Sterile 20 ML SDV INJECT ONE (16:22)
[2020-12-14] MEDS ORDERED: Ziprasidone Mesylate 20 MG Vial IM ONE (16:22)
[2020-12-14] MEDS ORDERED: LORazepam 2 MG/ML SDV IM ONE (16:24)
[2020-12-14] MEDS ORDERED: diphenhydrAMINE 50 MG/ML SDV IM ONE (16:25)
[2020-12-14] MEDS ORDERED: Sodium Chloride 0.9% 10 ML Syringe FLUSH PRN (16:26)
[2020-12-14] MEDS ORDERED: Sodium Chloride 0.9% 2.5 ML Syringe FLUSH PRN (16:26)
[2020-12-14 17:36] LABS: ACETAMINOPHEN <2.0 ug/mL; BLOOD UREA NITROGEN,BUN 12 mg/dL (7.0-18.0); CARBON DIOXIDE,CO2 22.6 mmol/L (21.0-32.0); CHLORIDE,CL 104 mmol/L (98-107); GLUCOSE RANDOM 92 mg/dL (74-106); POTASSIUM,K 4.1 mmol/L (3.5-5.1); SODIUM,NA 140 mmol/L (136-148)
[2020-12-14] MEDS ORDERED: Nicotine 21 MG/24 Hr Patch TRDERM ONE (22:08)
[2020-12-14] MEDS ORDERED: LORazepam 1 MG Tab PO ONE (22:08)
== END 2020-12-14 22:30 ==
LOC: MW.ED 16:04
DX: F33.3 Major depressive disorder, recurrent, severe with psychotic symptoms (principal); F41.9 Anxiety disorder, unspecified; Z20.822 Contact with and (suspected) exposure to COVID-19; Z79.899 Other long term (current) drug therapy; X83.8XXA Intentional self-harm by other specified means, initial encounter
CPT/HCPCS: 36415; 80053; 80143; 80179; 80305; 80307; 81003; 84443; 85025; 87635; 93005; 96372; 99285; A9270; J1200; J2060; J3486; 93010; U0002

== ENCOUNTER 2021-01-11 03:50 | Emergency (ER) | payer MEDICAID ==
[2021-01-11] MEDS ORDERED: diphenhydrAMINE 50 MG/ML SDV IM ONE (04:03)
[2021-01-11] MEDS ORDERED: LORazepam 2 MG/ML SDV IM ONE (04:03)
--- NOTE | 2021-01-11 05:16 | EDM.PDOC ---
ED HPI GENERAL MEDICAL PROBLEM - General Chief Complaint: Behavioral/Psych Stated Complaint: MENTAL HEALTH Time Seen by Provider: 01/11/21 03:54 - History of Present Illness INITIAL COMMENTS - FREE TEXT/NARRATIVE: HISTORY AND PHYSICAL: History of present illness: This a 30-year-old gentleman with history significant for psychosis who has a recent admission to [facility] who presents ER today secondary to feeling anxious about dying. Patient has any recent fevers, shakes, chills, nausea, vomiting, diarrhea, dysuria, frequency or urgency, chest pain or shortness of breath. Patient has any abdominal pain or discomfort. Patient has any homicidal or suicidal ideations. Patient denies any auditory or visual hallucinations although he does have concerns about the cartel, and getting him so he has been extremely scared. Patient is requesting medication to help him relax to get some rest. Review of systems: As per history of present illness and below otherwise all systems reviewed and negative. Past medical history: As per history of present illness and as reviewed below otherwise noncontributory. Surgical history: As per history of present illness and as reviewed below otherwise noncontributory. Social history: No reported history of drug abuse. Family history: As per history of present illness and as reviewed below otherwise noncontributory. Physical exam: This patient was seen and evaluated during the 2019 SARS-CoV-2 novel coronavirus pandemic period. Community viral transmission is ongoing at time of this encounter and the emergency department is operating under pandemic response procedures. Constitutional: Patient is oriented to person, place, and time. Appears well- developed and well-nourished. No distress. HEENT: Moist mucous membranes Head: Normocephalic and atraumatic Eyes: Right eye exhibits no discharge. Left eye exhibits no discharge. No scleral icterus Neck: Normal range of motion. No tracheal deviation present. Cardiovascular: Normal rate and regular rhythm. Pulmonary: Effort normal, no respiratory distress. Abdominal: No distention Musculoskeletal: Normal range of motion Neurologic: Alert and oriented to person, place and time. Skin: [place], warm and dry. Psychiatric: Normal mood and affect. Behavior is normal. Judgment and thought content normal. Nursing note and vital signs have been reviewed Diagnostics: [] Therapeutics: [] Assessment and plan: This is a 30-year-old gentleman with history significant for anxiety who presents to the ER today secondary to increased anxiety and fear of dying. Patient reports that he has been given morphine and Ativan in the past with some assistance. Patient is declining any antipsychotics. In the ED, the patient was given milligrams of IM Ativan as well as 25 Benadryl and he feels much improved. Patient is resting comfortably and has been sleeping this soundly without any problems. At this time, I do believe the patient has any acute psychiatric issues that will require any further ED or inpatient valuation and will be safely discharged home. Reassessment at the time of disposition demonstrates that the patient is in no acute distress. The patient has remained stable throughout the entire ED visit and is without objective evidence for acute process requiring urgent intervention or hospitalization. The patient is stable for discharge, counseling is provided as documented above, discussed symptomatic treatment and specific conditions for return. I have spoken with the patient/caregiver and discussed todays findings, in addition to providing specific details for the plan of care. Questions are answered and there is agreement with the plan. Definitive disposition and diagnosis as appropriate pending reevaluation and review of above. - Related Data Allergies Allergy/AdvReac Type Severity Reaction Status Date / Time No Known Allergies Allergy Verified 12/14/20 16:28 Home Meds: Home Meds ClonazePAM [KlonoPIN] 0.5 mg PO DAILY 11/23/20 [History] Paliperidone Palmitate [Invega Sustenna] 156 mg IM ASDIRECTED 11/23/20 [History] Prazosin HCl [Prazosin] 5 mg PO DAILY 11/23/20 [History] diphenhydrAMINE [Benadryl] 25 mg PO TID #6 tablet 11/23/20 [Rx] hydrOXYzine HCL [Hydroxyzine HCl] 25 mg PO TID PRN 7 Days #21 tablet 11/30/20 [Rx] Past Medical History HEENT History: Reports: None Cardiovascular History: Reports: None Respiratory History: Reports: None Gastrointestinal History: Reports: None Genitourinary History: Reports: None Musculoskeletal History: Reports: None Neurological History: Reports: Seizure Psychiatric History: Reports: ADHD, Anxiety, PTSD, Other (See Below) Other Psychiatric History: delusion disorder. borderline personality Endocrine/Metabolic History: Reports: None Insulin Pump Model and Magnetic Healer: None Hematologic History: Reports: None Immunologic History: Reports: None Oncologic (Cancer) History: Reports: None Dermatologic History: Reports: None - Infectious Disease History Infectious Disease History: Reports: Chicken Pox Other Infectious Disease History: Possible chicken pox as a child - Past Surgical History Head Surgeries/Procedures: Reports: None Musculoskeletal Surgical History: Reports: Shoulder Surgery Social & Family History - Family History Family Medical History: No Pertinent Family History - Caffeine Use Caffeine Use: Reports: Energy Drinks, Soda ED ROS GENERAL - Review of Systems Review Of Systems: See Below ED EXAM, GENERAL - Physical Exam Exam: See Below Course - Vital Signs Last Recorded V/S: Last Vital Signs Temp 97.3 F 01/11/21 04:07 Pulse 84 01/11/21 04:07 Resp 16 01/11/21 04:07 BP 137/93 H 01/11/21 04:07 Pulse Ox 100 01/11/21 04:07 - Orders/Labs/Meds Meds: Medications Discontinued Medications Generic Name Dose Route Start Last Admin Trade Name Freq PRN Reason Stop Dose Admin Diphenhydramine HCl 25 mg 01/11/21 04:03 01/11/21 04:18 Diphenhydramine 50 Mg/Ml Sdv IM 01/11/21 04:04 25 mg ONETIME ONE Administration Lorazepam 2 mg 01/11/21 04:03 01/11/21 04:19 Lorazepam 2 Mg/Ml Sdv IM 01/11/21 04:04 2 mg ONETIME ONE Administration Departure - Departure Time of Disposition: 05:15 Disposition: Home, Self-Care 01 Condition: Good Clinical Impression: Anxiety - Discharge Information Instructions: Managing Anxiety, Adult Referrals: PCP,None [Primary Care Provider] - Additional Instructions: Your seen and evaluated in ER today secondary to anxiety over dying. You are given a dose of Ativan 2 mg IM as well as Benadryl 25 mg IM. Please go home and get plenty rest follow-up with [facility] in the morning to assist you with appropriate counseling. The following information is given to patients seen in the emergency department who are being discharged to home. This information is to outline your options for follow-up care. We provide all patients seen in our emergency department with a follow-up referral. The need for follow-up, as well as the timing and circumstances, are variable depending upon the specifics of your emergency department visit. If you don't have a primary care physician on staff, we will provide you with a referral. We always advise you to contact your personal physician following an emergency department visit to inform them of the circumstance of the visit and for follow-up with them and/or the need for any referrals to a consulting specialist. The emergency department will also refer you to a specialist when appropriate. This referral assures that you have the opportunity for follow-up care with a specialist. All of these measure are taken in an effort to provide you with optimal care, which includes your follow-up. Under all circumstances we always encourage you to contact your private physician who remains a resource for coordinating your care. When calling for follow-up care, please make the office aware that this follow-up is from your recent emergency room visit. If for any reason you are refused follow-up, please contact the [facility] Emergency Department at and asked to speak to the emergency department charge nurse. [facility] [address] [place] [address] [place] [address] Sepsis Event Note (ED) - Focused Exam Vital Signs: Vital Signs Temp Pulse Resp BP Pulse Ox 01/11/21 04:07 97.3 F 84 16 137/93 H 100
== END 2021-01-11 07:19 | disposition home or self-care (01) ==
LOC: MW.ED 03:50
DX: F41.9 Anxiety disorder, unspecified (principal)
CPT/HCPCS: 96372; 99283; J1200; J2060; 99284

== ENCOUNTER 2021-01-11 20:41 | Emergency (ER) | payer MEDICAID ==
[2021-01-11 21:51] LABS: ACETAMINOPHEN <2.0 ug/mL; BLOOD UREA NITROGEN,BUN 12 mg/dL (7.0-18.0); CARBON DIOXIDE,CO2 23.9 mmol/L (21.0-32.0); CHLORIDE,CL 101 mmol/L (98-107); GLUCOSE RANDOM 119 mg/dL (74-106); POTASSIUM,K 3.8 mmol/L (3.5-5.1); SODIUM,NA 135 mmol/L (136-148)
[2021-01-11] MEDS ORDERED: LORazepam 2 MG/ML SDV IM ONE (22:38)
--- NOTE | 2021-01-12 00:26 | EDM.PDOC ---
ED HPI GENERAL MEDICAL PROBLEM - General Chief Complaint: Behavioral/Psych Stated Complaint: MENTAL HEALTH Time Seen by Provider: 01/11/21 21:05 - History of Present Illness INITIAL COMMENTS - FREE TEXT/NARRATIVE: HISTORY AND PHYSICAL: History of present illness: This is a 30-year-old gentleman with a history significant for anxiety disorder, ADHD, delusional disorder, PTSD, borderline personality, who presents ER today secondary to delusional thoughts and paranoia. Patient presented to the ER today concerned about his safety. Patient denies any suicidal ideation and reports that he has the opposite and is extremely concerned that someone is after him he was going to hurt him. Patient is somewhat evasive with answering some of the questions but reports that he knows that the cartel is after him to hurt him and is afraid to go home. Patient was seen in the ED yesterday for similar complaints and received a dose of Ativan in the ER felt improved and was discharged home. Patient presents back to the ER today with similar complaints but is demanding to be seen and treated by psychiatry. Patient reports that nighttime he is hospital better is after seeing a psychiatrist at [facility] when he was admitted there approximately 1 month ago. Patient reports after he was discharged from [facility] he saw a nurse practitioner at [facility] and she refused to follow the psychiatrist's instructions and therefore he started to deteriorate mentally. Patient denies any recent fevers, shakes, chills, nausea, vomiting, diarrhea, dysuria, frequency, urgency, chest pain, shortness of breath, abdominal pain. Patient denies any alcohol or drug use. Patient denies any auditory or visual hallucinations. Review of systems: As per history of present illness and below otherwise all systems reviewed and negative. Past medical history: As per history of present illness and as reviewed below otherwise noncontributory. Surgical history: As per history of present illness and as reviewed below otherwise noncontributory. Social history: No reported history of drug abuse. Family history: As per history of present illness and as reviewed below otherwise noncontributory. Physical exam: This patient was seen and evaluated during the 2019 SARS-CoV-2 novel coronavirus pandemic period. Community viral transmission is ongoing at time of this encounter and the emergency department is operating under pandemic response procedures. Constitutional: Patient is oriented to person, place, and time. Appears well- developed and well-nourished. No distress. HEENT: Moist mucous membranes Head: Normocephalic and atraumatic Eyes: Right eye exhibits no discharge. Left eye exhibits no discharge. No scleral icterus Neck: Normal range of motion. No tracheal deviation present. Cardiovascular: Normal rate and regular rhythm. Pulmonary: Effort normal, no respiratory distress. Abdominal: No distention Musculoskeletal: Normal range of motion Neurologic: Alert and oriented to person, place and time. Skin: [place], warm and dry. Psychiatric: Patient with a somewhat flat affect. Patient appears to be somewhat paranoid in his behavior. Patient answers questions appropriately but always paraphrase it by saying "I know you will believe me but this is real " Nursing note and vital signs have been reviewed Diagnostics: CBC, CMP, urinalysis, acetaminophen, salicylate, alcohol all normal. Therapeutics: [] Assessment and plan: 30-year-old gentleman with a history significant of anxiety and border personality disorder who presents ER today for further evaluation of anxiety and paranoid delusions. Patient keeps repeating that he is afraid to go home because he feels the cartel is closing in on him and he does not want to . Patient is requesting to be transferred to [facility] to get some help. Patient is remained clinically and hemodynamically stable throughout his ED visit. Patient does not present as a harm to himself or others. Patient does h ave some paranoid thoughts that have been stable for quite some time. Unfortunately after receiving all his blood test results and medically clearing him for [facility], I have spoken to Malka from the transfer center who spoke to Dr. Quijano who reports that they at this time are unable to accept the transfer secondary to to any patients in the waiting room requiring psychiatric assistance and being at capacity. I have discussed these with the patient and have informed him of the inability to transfer him to [facility] as he would like. Patient did not wish to go to any other facility. At this time, since the patient is not suicidal, homicidal and is not a threat to himself or others I feel that the patient can be discharged safely. Patient has been resting comfortably watching videos on his phone since being given Ativan. Patient understands that at this time we have been unable to assist him with transfer. Reassessment at the time of disposition demonstrates that the patient is in no acute distress. The patient has remained stable throughout the entire ED visit and is without objective evidence for acute process requiring urgent intervention or hospitalization. The patient is stable for discharge, counseling is provided as documented above, discussed symptomatic treatment and specific conditions for return. I have spoken with the patient/caregiver and discussed todays findings, in addition to providing specific details for the plan of care. Questions are answered and there is agreement with the plan. Definitive disposition and diagnosis as appropriate pending reevaluation and review of above. - Related Data Allergies Allergy/AdvReac Type Severity Reaction Status Date / Time No Known Allergies Allergy Verified 01/11/21 21:06 Home Meds: Home Meds ClonazePAM [KlonoPIN] 0.5 mg PO DAILY 11/23/20 [History] Paliperidone Palmitate [Invega Sustenna] 156 mg IM ASDIRECTED 11/23/20 [History] Prazosin HCl [Prazosin] 5 mg PO DAILY 11/23/20 [History] diphenhydrAMINE [Benadryl] 25 mg PO TID #6 tablet 11/23/20 [Rx] hydrOXYzine HCL [Hydroxyzine HCl] 25 mg PO TID PRN 7 Days #21 tablet 11/30/20 [Rx] Past Medical History HEENT History: Reports: None Cardiovascular History: Reports: Hypertension Respiratory History: Reports: None Gastrointestinal History: Reports: None Genitourinary History: Reports: None Musculoskeletal History: Reports: None Neurological History: Reports: Seizure Psychiatric History: Reports: ADHD, Anxiety, PTSD, Other (See Below) Other Psychiatric History: delusion disorder. borderline personality Endocrine/Metabolic History: Reports: None Insulin Pump Model and Regulatory Analyst: None Hematologic History: Reports: None Immunologic History: Reports: None Oncologic (Cancer) History: Reports: None Dermatologic History: Reports: None - Infectious Disease History Infectious Disease History: Reports: Chicken Pox Other Infectious Disease History: Possible chicken pox as a child - Past Surgical History Head Surgeries/Procedures: Reports: None Musculoskeletal Surgical History: Reports: Shoulder Surgery Social & Family History - Family History Family Medical History: No Pertinent Family History - Tobacco Use Tobacco Use Status *Q: Never Tobacco User Second Hand Smoke Exposure: No - Caffeine Use Caffeine Use: Reports: None - Recreational Drug Use Recreational Drug Use: No ED ROS GENERAL - Review of Systems Review Of Systems: See Below ED EXAM, GENERAL - Physical Exam Exam: See Below #1 Interpretation EKG Interpretation Comments: EKG date January 11 9:23 PM EKG: As interpreted by ER physician: Hipolito: Nonspecific ST-T wave abnormalities Normal axis No evidence of ST elevation LA Normal sinus rhythm heart rate of 85 Course - Vital Signs Last Recorded V/S: Last Vital Signs Temp 97.0 F 01/11/21 20:59 Pulse 92 01/11/21 20:59 Resp 14 01/11/21 20:59 BP 130/75 01/11/21 20:59 Pulse Ox 95 01/11/21 20:59 - Orders/Labs/Meds Orders: Active Orders 24 hr Category Date Time Status EKG Documentation Completion [RC] STAT Care 01/11/21 21:13 Active Labs: Laboratory Tests 01/11/21 01/11/21 01/11/21 Range/Units 21:24 21:24 22:37 WBC 11.38 H (4.0-11.0) K/uL RBC 4.98 (4.50-5.90) M/uL Hgb 16.2 (13.0-17.0) g/dL Hct 45.7 (38.0-50.0) % MCV 91.8 (80.0-98.0) fL MCH 32.5 H (27.0-32.0) pg MCHC 35.4 (31.0-37.0) g/dL RDW Std Deviation 44.0 (28.0-62.0) fl RDW Coeff of Marko 13 (11.0-15.0) % Plt Count 321 (150-400) K/uL MPV 10.50 (7.40-12.00) fL Neut % (Auto) 63.2 (48.0-80.0) % Lymph % (Auto) 25.3 (16.0-40.0) % [place] % (Auto) 9.4 (0.0-15.0) % Eos % (Auto) 1.6 (0.0-7.0) % Baso % (Auto) 0.5 (0.0-1.5) % Neut # (Auto) 7.2 H (1.4-5.7) K/uL Lymph # (Auto) 2.9 H (0.6-2.4) K/uL [place] # (Auto) 1.1 H (0.0-0.8) K/uL Eos # (Auto) 0.2 (0.0-0.7) K/uL Baso # (Auto) 0.1 (0.0-0.1) K/uL Nucleated RBC % 0.0 /100WBC Nucleated RBCs # 0 K/uL Sodium 135 L (136-148) mmol/L Potassium 3.8 (3.5-5.1) mmol/L Chloride 101 (98-107) mmol/L Carbon Dioxide 23.9 (21.0-32.0) mmol/L BUN 12 (7.0-18.0) mg/dL Creatinine 0.9 (0.8-1.3) mg/dL Est Cr Clr Drug Dosing TNP Estimated GFR (MDRD) > 60.0 ml/min Glucose 119 H (74-106) mg/dL Calcium 8.4 L (8.5-10.1) mg/dL Magnesium 2.3 (1.8-2.4) mg/dL Total Bilirubin 0.4 (0.2-1.0) mg/dL AST 31 (15-37) IU/L ALT 53 (14-63) IU/L Alkaline Phosphatase 114 (46-116) U/L Total Protein 6.9 (6.4-8.2) g/dL Albumin 3.6 (3.4-5.0) g/dL Globulin 3.3 (2.6-4.0) g/dL Albumin/Globulin Ratio 1.1 (0.9-1.6) Urine Color Urine Appearance Urine pH (5.0-8.0) Ur Specific [place] (1.001-1.035) Urine Protein (NEGATIVE) mg/dL Urine Glucose (UA) (NEGATIVE) mg/dL Urine Ketones (NEGATIVE) mg/dL Urine Occult Blood (NEGATIVE) Urine Nitrite (NEGATIVE) Urine Bilirubin (NEGATIVE) Urine Urobilinogen (<2.0) EU/dL Ur Leukocyte Esterase (NEGATIVE) Urine RBC (0-2/HPF) Urine WBC (0-5/HPF) Ur Epithelial Cells (NONE-FEW) Urine Bacteria (NEGATIVE) Salicylates 5.1 (0-20) mg/dL Urine Opiates Screen (NEGATIVE) Ur Oxycodone Screen (NEGATIVE) Urine Methadone Screen (NEGATIVE) Acetaminophen <2.0 ug/mL Ur Barbiturates Screen (NEGATIVE) Ur Phencyclidine Scrn (NEGATIVE) Ur Amphetamine Screen (NEGATIVE) U Methamphetamines Scrn (NEGATIVE) U Benzodiazepines Scrn (NEGATIVE) U Cocaine Metab Screen (NEGATIVE) U Marijuana (THC) Screen (NEGATIVE) Ethyl Alcohol <3 mg/dL SARS-CoV-2 RNA (AUNG) NEGATIVE (NEGATIVE) 01/11/21 01/11/21 Range/Units 23:45 23:45 WBC (4.0-11.0) K/uL RBC (4.50-5.90) M/uL Hgb (13.0-17.0) g/dL Hct (38.0-50.0) % MCV (80.0-98.0) fL MCH (27.0-32.0) pg MCHC (31.0-37.0) g/dL RDW Std Deviation (28.0-62.0) fl RDW Coeff of Marko (11.0-15.0) % Plt Count (150-400) K/uL MPV (7.40-12.00) fL Neut % (Auto) (48.0-80.0) % Lymph % (Auto) (16.0-40.0) % [place] % (Auto) (0.0-15.0) % Eos % (Auto) (0.0-7.0) % Baso % (Auto) (0.0-1.5) % Neut # (Auto) (1.4-5.7) K/uL Lymph # (Auto) (0.6-2.4) K/uL [place] # (Auto) (0.0-0.8) K/uL Eos # (Auto) (0.0-0.7) K/uL Baso # (Auto) (0.0-0.1) K/uL Nucleated RBC % /100WBC Nucleated RBCs # K/uL Sodium (136-148) mmol/L Potassium (3.5-5.1) mmol/L Chloride (98-107) mmol/L Carbon Dioxide (21.0-32.0) mmol/L BUN (7.0-18.0) mg/dL Creatinine (0.8-1.3) mg/dL Est Cr Clr Drug Dosing Estimated GFR (MDRD) ml/min Glucose (74-106) mg/dL Calcium (8.5-10.1) mg/dL Magnesium (1.8-2.4) mg/dL Total Bilirubin (0.2-1.0) mg/dL AST (15-37) IU/L ALT (14-63) IU/L Alkaline Phosphatase (46-116) U/L Total Protein (6.4-8.2) g/dL Albumin (3.4-5.0) g/dL Globulin (2.6-4.0) g/dL Albumin/Globulin Ratio (0.9-1.6) Urine Color YELLOW Urine Appearance CLEAR Urine pH 6.0 (5.0-8.0) Ur Specific [place] 1.025 (1.001-1.035) Urine Protein NEGATIVE (NEGATIVE) mg/dL Urine Glucose (UA) NEGATIVE (NEGATIVE) mg/dL Urine Ketones NEGATIVE (NEGATIVE) mg/dL Urine Occult Blood NEGATIVE (NEGATIVE) Urine Nitrite NEGATIVE (NEGATIVE) Urine Bilirubin NEGATIVE (NEGATIVE) Urine Urobilinogen 0.2 (<2.0) EU/dL Ur Leukocyte Esterase NEGATIVE (NEGATIVE) Urine RBC 0-1 (0-2/HPF) Urine WBC 0-1 (0-5/HPF) Ur Epithelial Cells RARE (NONE-FEW) Urine Bacteria RARE (NEGATIVE) Salicylates (0-20) mg/dL Urine Opiates Screen NEGATIVE (NEGATIVE) Ur Oxycodone Screen NEGATIVE (NEGATIVE) Urine Methadone Screen NEGATIVE (NEGATIVE) Acetaminophen ug/mL Ur Barbiturates Screen NEGATIVE (NEGATIVE) Ur Phencyclidine Scrn NEGATIVE (NEGATIVE) Ur Amphetamine Screen NEGATIVE (NEGATIVE) U Methamphetamines Scrn NEGATIVE (NEGATIVE) U Benzodiazepines Scrn NEGATIVE (NEGATIVE) U Cocaine Metab Screen NEGATIVE (NEGATIVE) U Marijuana (THC) Screen NEGATIVE (NEGATIVE) Ethyl Alcohol mg/dL SARS-CoV-2 RNA (AUNG) (NEGATIVE) Meds: Medications Discontinued Medications Generic Name Dose Route Start Last Admin Trade Name Freq PRN Reason Stop Dose Admin Lorazepam 2 mg 01/11/21 22:38 01/11/21 23:12 Lorazepam 2 Mg/Ml Sdv IM 01/11/21 22:39 2 mg ONETIME ONE Administration Departure - Departure Time of Disposition: 00:56 Disposition: Home, Self-Care 01 Condition: Good Clinical Impression: Panic disorder, Anxiety - Discharge Information Instructions: Managing Anxiety, Adult Referrals: PCP,None [Primary Care Provider] - Forms: ED Department Discharge Additional Instructions: Your seen and evaluated in the ER today secondary to your anxiety. Unfortunately, we have called [facility] and they do not have any bed availability. Please go to [facility] or one of the outpatient mental health services to assist you with your anxiety, PTSD and other mental health issues. The following information is given to patients seen in the emergency department who are being discharged to home. This information is to outline your options for follow-up care. We provide all patients seen in our emergency department with a follow-up referral. The need for follow-up, as well as the timing and circumstances, are variable depending upon the specifics of your emergency department visit. If you don't have a primary care physician on staff, we will provide you with a referral. We always advise you to contact your personal physician following an emergency department visit to inform them of the circumstance of the visit and for follow-up with them and/or the need for any referrals to a consulting specialist. The emergency department will also refer you to a specialist when appropriate. This referral assures that you have the opportunity for follow-up care with a specialist. All of these measure are taken in an effort to provide you with optimal care, which includes your follow-up. Under all circumstances we always encourage you to contact your private physician who remains a resource for coordinating your care. When calling for follow-up care, please make the office aware that this follow-up is from your recent emergency room visit. If for any reason you are refused follow-up, please contact the [facility] Emergency Department at and asked to speak to the emergency department charge nurse. [facility] - Primary Care [address] [place] [address] [id number] [address] [address] Sepsis Event Note (ED) - Focused Exam Vital Signs: Vital Signs Temp Pulse Resp BP Pulse Ox 01/11/21 20:59 97.0 F 92 14 130/75 95 - My Orders Last 24 Hours: My Active Orders 01/11/21 21:13 EKG Documentation Completion [RC] STAT - Assessment/Plan Last 24 Hours: My Active Orders 01/11/21 21:13 EKG Documentation Completion [RC] STAT
== END 2021-01-12 01:19 | disposition home or self-care (01) ==
LOC: MW.ED 20:41
DX: F41.0 Panic disorder [episodic paroxysmal anxiety] (principal); I10 Essential (primary) hypertension; Z77.22 Contact with and (suspected) exposure to environmental tobacco smoke (acute) (chronic); Z79.899 Other long term (current) drug therapy; Z20.822 Contact with and (suspected) exposure to COVID-19
CPT/HCPCS: 36415; 80053; 80143; 80179; 80305; 80307; 81001; 83735; 85025; 87635; 93005; 96372; 99285; J2060; 93010; 99284; U0002

== ENCOUNTER 2021-01-13 13:39 | Emergency (ER) | payer MEDICAID ==
--- NOTE | 2021-01-13 14:30 | PCM.EKG ---
#1 Interpretation Time: 14:30 EKG Interpretation Comments: 110, sinus tachycardia, no QRS prolongation or QT prolongation. Nonspecific ST/T findings
[2021-01-13 15:27] LABS: ACETAMINOPHEN <2.0 ug/mL; BLOOD UREA NITROGEN,BUN 10 mg/dL (7.0-18.0); CHLORIDE,CL 106 mmol/L (98-107); GLUCOSE RANDOM 84 mg/dL (74-106); POTASSIUM,K 4.2 mmol/L (3.5-5.1); SODIUM,NA 140 mmol/L (136-148)
--- NOTE | 2021-01-13 16:47 | EDM.PDOC ---
ED HPI GENERAL MEDICAL PROBLEM - General Chief Complaint: Behavioral/Psych Stated Complaint: SUCIDAL Time Seen by Provider: 01/13/21 13:53 Source of Information: Reports: Patient History Limitations: Reports: No Limitations - History of Present Illness INITIAL COMMENTS - FREE TEXT/NARRATIVE: HISTORY AND PHYSICAL: History of present illness: Patient is a 30-year-old male who presents emergency room today with law enforcement at bedside but not in law enforcement custody for concern of suicidal ideation with a plan. Patient states that he wants to and states that he does not know by which means, but states that he would find what ever is available to him and the opportunity. Patient also makes statements that he has complicated PTSD that no one understands the way he thinks and that "he sees things in reverse and has a third eye." Patient states that he is able to predict the future and people dislike him for this so also want to kill him which he is happy about. Patient states that people dislike him so much that they look through his phone and tap into his phone line to record his conversations to other people. Patient states that he sees souls on this earth that others cannot and has psychic abilities. Patient states that he does not like antipsychotic medications as these make him angry. Patient states he did take 3 of his clonazepam trying to help his anxiety today as he would like to escape from this thought process. Patient denies fever, chills, chest pain, shortness of breath, or cough. Denies headache, neck stiff ness, change in vision, syncope, or near syncope. Denies nausea, vomiting, abdominal pain, diarrhea, constipation, or dysuria. Has not noted any blood in urine or stool. Patient has been eating and drinking appropriately. Review of systems: As per history of present illness and below otherwise all systems reviewed and negative. Past medical history: As per history of present illness and as reviewed below otherwise n oncontributory. Surgical history: As per history of present illness and as reviewed below otherwise noncontributory. Social history: See social history for further information Family history: As per history of present illness and as reviewed below otherwise noncontributory. Physical exam: General: Patient is alert, oriented, and in no acute distress. Patient sitting comfortably on exam table. Patient does have pressured speech. Vitals stable and reviewed by me HEENT: Atraumatic, normocephalic, pupils equal and reactive bilaterally, negative for conjunctival pallor or scleral icterus, mucous membranes moist, TMs normal bilaterally, throat clear, neck supple, nontender, trachea midline. No drooling or trismus noted. No meningeal signs. No hot potato voice noted. Lungs: Clear to auscultation, breath sounds equal bilaterally, chest nontender. Heart: S1S2, regular rate and rhythm without overt murmur Abdomen: Soft, nondistended, nontender. Negative for masses or hepatosplenomegaly. Negative for costovertebral tenderness. Pelvis: Stable nontender. Genitourinary: Deferred. Rectal: Deferred. Skin: Intact, warm, dry. No lesions or rashes noted. Extremities: Atraumatic, negative for cords or calf pain. Neurovascular unremarkable. Neuro: Awake, alert, oriented. Cranial nerves II through XII unremarkable. Cerebellum unremarkable. Motor and sensory unremarkable throughout. Exam non focal. Notes: Patient is a 30-year-old male who presents emergency room today with concern of suicidal elation with a plan to " take whatever opportunity comes about" to kill himself. Upon arrival to the ED, patient is vitally stable, mild tachycardia of 105 on exam, otherwise vitally stable and reviewed by me. On exam, patient does have pressured speech and does make bizarre statements such as "gang members are out to get him" and "tap into his phone and conversations" in order to track him down. He also states that he wishes " they would just murder him then he would not have to worry about killing himself". Patient also makes note of seeing "peoples souls all around him that threaten him". Patient states that he has been transferred to [facility] in [place] and thought that they were helpful and understood "the way he thinks" when no one else is understood him before. Will obtain mental health evaluation labs in place on one-on-one psychiatric monitoring. Patient placed on involuntary psychiatric hold and paperwork filled out. Patient does have a COVID-19 screen from last night at 2230 which was negative. It appears on chart review that patient was seen last night for anxiety and was given Ativan with improvement of his symptoms and sent home. See Dr. Mills's dictation for specific EKG interpretation. However, normal sinus rhythm without STEMI. CBC mild derangements are unremarkable. CMP mild derangements are unremarkable. TSH and free T3 and T4 within normal limits. Urinalysis is clear of infection. Urine drug screen is negative. Salicylate is at 5.4 which is within normal limits. Acetaminophen negative. ETOH 82. [facility] [place] at capacity. I did call and speak to Dr. Curry at [facility] and accepting of transfer. EMS arranged. Patient remains vitally stable and discharged to EMS in stable condition. Diagnostics: Mental health screening lab work Therapeutics: None Impression: Suicidal ideation Alcohol use Plan: Transfer to Dr. Curry At [facility] via EMS Definitive disposition and diagnosis as appropriate pending reevaluation and review of above. - Related Data Allergies Allergy/AdvReac Type Severity Reaction Status Date / Time No Known Allergies Allergy Verified 01/13/21 14:12 Home Meds: Home Meds ClonazePAM [KlonoPIN] 0.5 mg PO TID PRN 11/23/20 [History] Losartan Potassium 50 mg PO DAILY 01/13/21 [History] Sertraline HCl 100 mg PO DAILY 01/13/21 [History] cloNIDine HCL [Clonidine HCl] 0.1 mg PO TID 01/13/21 [History] hydrOXYzine HCL [Hydroxyzine HCl] 25 mg PO TID PRN 01/13/21 [History] Past Medical History HEENT History: Reports: None Cardiovascular History: Reports: Hypertension Respiratory History: Reports: None Gastrointestinal History: Reports: None Genitourinary History: Reports: None Musculoskeletal History: Reports: None Neurological History: Reports: Seizure Psychiatric History: Reports: ADHD, Anxiety, PTSD, Suicide Attempt, Suicidal Ideation, Other (See Below) Other Psychiatric History: delusion disorder. borderline personality Endocrine/Metabolic History: Reports: None Insulin Pump Model and Industrial Security Analyst: None Hematologic History: Reports: None Immunologic History: Reports: None Oncologic (Cancer) History: Reports: None Dermatologic History: Reports: None - Infectious Disease History Infectious Disease History: Reports: Chicken Pox Other Infectious Disease History: Possible chicken pox as a child - Past Surgical History Head Surgeries/Procedures: Reports: None Musculoskeletal Surgical History: Reports: Shoulder Surgery Social & Family History - Family History Family Medical History: No Pertinent Family History - Caffeine Use Caffeine Use: Reports: None - Recreational Drug Use Recreational Drug Use: No ED ROS GENERAL - Review of Systems Review Of Systems: Comprehensive ROS is negative, except as noted in HPI. ED EXAM, GENERAL - Physical Exam Exam: See Below (see dictation) Course - Vital Signs Last Recorded V/S: Last Vital Signs Temp 96.8 F L 01/13/21 13:55 Pulse 106 H 01/13/21 18:30 Resp 16 01/13/21 18:30 BP 144/77 H 01/13/21 18:30 Pulse Ox 96 01/13/21 18:30 - Orders/Labs/Meds Labs: Laboratory Tests 01/13/21 01/13/21 01/13/21 Range/Units 13:50 13:50 14:30 WBC (4.0-11.0) K/uL RBC (4.50-5.90) M/uL Hgb (13.0-17.0) g/dL Hct (38.0-50.0) % MCV (80.0-98.0) fL MCH (27.0-32.0) pg MCHC (31.0-37.0) g/dL RDW Std Deviation (28.0-62.0) fl RDW Coeff of Marko (11.0-15.0) % Plt Count (150-400) K/uL MPV (7.40-12.00) fL Neut % (Auto) (48.0-80.0) % Lymph % (Auto) (16.0-40.0) % Cassia % (Auto) (0.0-15.0) % Eos % (Auto) (0.0-7.0) % Baso % (Auto) (0.0-1.5) % Neut # (Auto) (1.4-5.7) K/uL Lymph # (Auto) (0.6-2.4) K/uL Cassia # (Auto) (0.0-0.8) K/uL Eos # (Auto) (0.0-0.7) K/uL Baso # (Auto) (0.0-0.1) K/uL Nucleated RBC % /100WBC Nucleated RBCs # K/uL Sodium 140 (136-148) mmol/L Potassium 4.2 (3.5-5.1) mmol/L Chloride 106 (98-107) mmol/L Carbon Dioxide 24.0 (21.0-32.0) mmol/L BUN 10 (7.0-18.0) mg/dL Creatinine 1.0 (0.8-1.3) mg/dL Est Cr Clr Drug Dosing 131.44 mL/min Estimated GFR (MDRD) > 60.0 ml/min Glucose 84 (74-106) mg/dL Calcium 8.7 (8.5-10.1) mg/dL Magnesium 2.3 (1.8-2.4) mg/dL Total Bilirubin 0.2 (0.2-1.0) mg/dL AST 9 L (15-37) IU/L ALT 39 (14-63) IU/L Alkaline Phosphatase 104 (46-116) U/L Total Protein 7.1 (6.4-8.2) g/dL Albumin 3.7 (3.4-5.0) g/dL Globulin 3.4 (2.6-4.0) g/dL Albumin/Globulin Ratio 1.1 (0.9-1.6) Free T4 0.86 (0.76-1.46) ng/dL Free T3 2.45 (2.18-3.98) pg/mL TSH, Ultra Sensitive 0.48 (0.36-3.74) uIU/mL Urine Color YELLOW Urine Appearance CLEAR Urine pH 6.0 (5.0-8.0) Ur Specific [place] <= 1.005 (1.001-1.035) Urine Protein NEGATIVE (NEGATIVE) mg/dL Urine Glucose (UA) NEGATIVE (NEGATIVE) mg/dL Urine Ketones NEGATIVE (NEGATIVE) mg/dL Urine Occult Blood NEGATIVE (NEGATIVE) Urine Nitrite NEGATIVE (NEGATIVE) Urine Bilirubin NEGATIVE (NEGATIVE) Urine Urobilinogen 0.2 (<2.0) EU/dL Ur Leukocyte Esterase NEGATIVE (NEGATIVE) Urine RBC 0-1 (0-2/HPF) Urine WBC 0-1 (0-5/HPF) Ur Epithelial Cells RARE (NONE-FEW) Urine Bacteria RARE (NEGATIVE) Salicylates 5.4 (0-20) mg/dL Urine Opiates Screen NEGATIVE (NEGATIVE) Ur Oxycodone Screen NEGATIVE (NEGATIVE) Urine Methadone Screen NEGATIVE (NEGATIVE) Acetaminophen <2.0 ug/mL Ur Barbiturates Screen NEGATIVE (NEGATIVE) Ur Phencyclidine Scrn NEGATIVE (NEGATIVE) Ur Amphetamine Screen NEGATIVE (NEGATIVE) U Methamphetamines Scrn NEGATIVE (NEGATIVE) U Benzodiazepines Scrn NEGATIVE (NEGATIVE) U Cocaine Metab Screen NEGATIVE (NEGATIVE) U Marijuana (THC) Screen NEGATIVE (NEGATIVE) Ethyl Alcohol 82 mg/dL SARS-CoV-2 RNA (AUNG) (NEGATIVE) 01/13/21 01/13/21 Range/Units 14:30 17:18 WBC 9.83 (4.0-11.0) K/uL RBC 5.22 (4.50-5.90) M/uL Hgb 16.6 (13.0-17.0) g/dL Hct 48.1 (38.0-50.0) % MCV 92.1 (80.0-98.0) fL MCH 31.8 (27.0-32.0) pg MCHC 34.5 (31.0-37.0) g/dL RDW Std Deviation 45.4 (28.0-62.0) fl RDW Coeff of Marko 14 (11.0-15.0) % Plt Count 280 (150-400) K/uL MPV 10.40 (7.40-12.00) fL Neut % (Auto) 64.8 (48.0-80.0) % Lymph % (Auto) 24.4 (16.0-40.0) % Cassia % (Auto) 9.1 (0.0-15.0) % Eos % (Auto) 1.4 (0.0-7.0) % Baso % (Auto) 0.3 (0.0-1.5) % Neut # (Auto) 6.4 H (1.4-5.7) K/uL Lymph # (Auto) 2.4 (0.6-2.4) K/uL Cassia # (Auto) 0.9 H (0.0-0.8) K/uL Eos # (Auto) 0.1 (0.0-0.7) K/uL Baso # (Auto) 0.0 (0.0-0.1) K/uL Nucleated RBC % 0.0 /100WBC Nucleated RBCs # 0 K/uL Sodium (136-148) mmol/L Potassium (3.5-5.1) mmol/L Chloride (98-107) mmol/L Carbon Dioxide (21.0-32.0) mmol/L BUN (7.0-18.0) mg/dL Creatinine (0.8-1.3) mg/dL Est Cr Clr Drug Dosing mL/min Estimated GFR (MDRD) ml/min Glucose (74-106) mg/dL Calcium (8.5-10.1) mg/dL Magnesium (1.8-2.4) mg/dL Total Bilirubin (0.2-1.0) mg/dL AST (15-37) IU/L ALT (14-63) IU/L Alkaline Phosphatase (46-116) U/L Total Protein (6.4-8.2) g/dL Albumin (3.4-5.0) g/dL Globulin (2.6-4.0) g/dL Albumin/Globulin Ratio (0.9-1.6) Free T4 (0.76-1.46) ng/dL Free T3 (2.18-3.98) pg/mL TSH, Ultra Sensitive (0.36-3.74) uIU/mL Urine Color Urine Appearance Urine pH (5.0-8.0) Ur Specific [place] (1.001-1.035) Urine Protein (NEGATIVE) mg/dL Urine Glucose (UA) (NEGATIVE) mg/dL Urine Ketones (NEGATIVE) mg/dL Urine Occult Blood (NEGATIVE) Urine Nitrite (NEGATIVE) Urine Bilirubin (NEGATIVE) Urine Urobilinogen (<2.0) EU/dL Ur Leukocyte Esterase (NEGATIVE) Urine RBC (0-2/HPF) Urine WBC (0-5/HPF) Ur Epithelial Cells (NONE-FEW) Urine Bacteria (NEGATIVE) Salicylates (0-20) mg/dL Urine Opiates Screen (NEGATIVE) Ur Oxycodone Screen (NEGATIVE) Urine Methadone Screen (NEGATIVE) Acetaminophen ug/mL Ur Barbiturates Screen (NEGATIVE) Ur Phencyclidine Scrn (NEGATIVE) Ur Amphetamine Screen (NEGATIVE) U Methamphetamines Scrn (NEGATIVE) U Benzodiazepines Scrn (NEGATIVE) U Cocaine Metab Screen (NEGATIVE) U Marijuana (THC) Screen (NEGATIVE) Ethyl Alcohol mg/dL SARS-CoV-2 RNA (AUNG) NEGATIVE (NEGATIVE) Meds: Medications Discontinued Medications Generic Name Dose Route Start Last Admin Trade Name Freq PRN Reason Stop Dose Admin Lorazepam 0.5 mg 01/13/21 17:24 01/13/21 17:31 Lorazepam 0.5 Mg Tab PO 01/13/21 17:25 0.5 mg ONETIME ONE Administration Departure - Departure Time of Disposition: 21:41 Disposition: DC/Tfer to Psych Hosp/Unit 65 Clinical Impression: Suicidal ideation, Alcohol use - Discharge Information Referrals: PCP,None [Primary Care Provider] - Forms: ED Department Discharge Sepsis Event Note (ED) - Evaluation Sepsis Screening Result: No Definite Risk - Focused Exam Vital Signs: Vital Signs Temp Pulse Resp BP Pulse Ox 01/13/21 18:30 106 H 16 144/77 H 96 01/13/21 18:00 117 H 16 132/85 96 01/13/21 17:28 112 H 16 121/77 97 01/13/21 17:00 119 H 16 128/80 96 01/13/21 16:30 115 H 16 116/60 96 01/13/21 16:00 103 H 16 105/52 L 93 L 01/13/21 15:29 107 H 16 109/57 L 92 L 01/13/21 15:00 106 H 16 125/66 93 L 01/13/21 14:30 114 H 16 138/80 96 01/13/21 13:55 96.8 F L 106 H 20 126/65 94 L
[2021-01-13] MEDS ORDERED: LORazepam 0.5 MG Tab PO ONE (17:24)
== END 2021-01-13 18:48 ==
LOC: MW.ED 13:39
DX: F10.10 Alcohol abuse, uncomplicated (principal); I10 Essential (primary) hypertension; Z20.822 Contact with and (suspected) exposure to COVID-19; Z79.899 Other long term (current) drug therapy; Y90.4 Blood alcohol level of 80-99 mg/100 ml
CPT/HCPCS: 36415; 80053; 80143; 80179; 80305; 80307; 81001; 83735; 84439; 84443; 84481; 85025; 87635; 99285; A9270; U0002

== ENCOUNTER 2021-01-25 15:35 | Emergency (ER) | payer MEDICAID ==
[2021-01-25] MEDS ORDERED: LORazepam 1 MG Tab PO ONE (16:02)
--- NOTE | 2021-01-25 16:06 | EDM.PDOC ---
ED HPI GENERAL MEDICAL PROBLEM - General Chief Complaint: General Stated Complaint: EMS Time Seen by Provider: 01/25/21 15:47 Source of Information: Reports: Patient History Limitations: Reports: No Limitations - History of Present Illness INITIAL COMMENTS - FREE TEXT/NARRATIVE: HISTORY AND PHYSICAL: History of present illness: Patient is a 30-year-old male who presents emergency room today with concern of feeling anxious. Patient states he has a an extensive history of complex PTSD and states that he began feeling anxious after he felt like he was laced with PCP in his marijuana. Patient states that this was several days ago but since then his anxiety has been higher. Patient states that he called his psychologist today who thought that maybe he needed to come the emergency room for further evaluation. Patient denies any suicidal or homicidal ideation or any other symptoms or concerns. Patient denies fever, chills, chest pain, shortness of breath, or cough. Denies headache, neck stiff ness, change in vision, syncope, or near syncope. Denies nausea, vomiting, abdominal pain, diarrhea, constipation, or dysuria. Has not noted any blood in urine or stool. Patient has been eating and drinking appropriately. Review of systems: As per history of present illness and below otherwise all systems reviewed and negative. Past medical history: As per history of present illness and as reviewed below otherwise noncontributory. Surgical history: As per history of present illness and as reviewed below otherwise noncontributory. Social history: See social history for further information Family history: As per history of present illness and as reviewed below otherwise noncontributory. Physical exam: General: Patient is alert, oriented, and in no acute distress. Patient sitting comfortably on exam table. HEENT: Atraumatic, normocephalic, pupils equal and reactive bilaterally, negative for conjunctival pallor or scleral icterus, mucous membranes moist, TMs normal bilaterally, throat clear, neck supple, nontender, trachea midline. No drooling or trismus noted. No meningeal signs. No hot potato voice noted. Lungs: Clear to auscultation, breath sounds equal bilaterally, chest nontender. Heart: S1S2, regular rate and rhythm without overt murmur Abdomen: Soft, nondistended, nontender. Negative for masses or hepatosplenomegaly. Negative for costovertebral tenderness. Pelvis: Stable nontender. Genitourinary: Deferred. Rectal: Deferred. Skin: Intact, warm, dry. No lesions or rashes noted. Extremities: Atraumatic, negative for cords or calf pain. Neurovascular unremarkable. Neuro: Awake, alert, oriented. Cranial nerves II through XII unremarkable. Cerebellum unremarkable. Motor and sensory unremarkable throughout. Exam nonfocal. Notes: Patient is a 30-year-old male who presents emergency room today secondary to anxiety. Upon arrival to the ED, patient is mildly tachycardic 10 5-1 tens on exam, otherwise vitally stable and reviewed by me. I did offer patient an evaluation due to his tachycardia. However, patient declined stating that this is related to his anxiety. Patient does ask if he is able to receive 1 dose of Ativan here in the emergency room. Will provide patient with 1 dose of Ativan. Patient is requesting that I adjust his medications. Patient does state he follows along with a provider at [facility]. Nursing staff did call out to Edgerton Zulahoo who is able to see patient immediately following discharge from the emergency room. Patient was provided with 1 dose of Ativan and instruction to follow-up with [facility] following discharge from the ED. Strict return precautions thoroughly discussed with patient. Discussed importance for follow-up with primary care provider and psychiatrist. Voices understanding and is agreeable to plan of care. Denies any further questions or concerns at this time. Diagnostics: None Therapeutics: Ativan Prescription: None Impression: Anxiety Plan: Follow-up with primary care provider and psychiatrist as discussed. Return to the ED as needed and as discussed. Definitive disposition and diagnosis as appropriate pending reevaluation and review of above. - Related Data Allergies Allergy/AdvReac Type Severity Reaction Status Date / Time No Known Allergies Allergy Verified 01/13/21 14:12 Home Meds: Home Meds ClonazePAM [KlonoPIN] 0.5 mg PO TID PRN 11/23/20 [History] Losartan Potassium 50 mg PO DAILY 01/13/21 [History] Sertraline HCl 100 mg PO DAILY 01/13/21 [History] cloNIDine HCL [Clonidine HCl] 1 mg PO BID 01/13/21 [History] risperiDONE [Risperdal] 1 mg PO DAILY 01/25/21 [History] Past Medical History HEENT History: Reports: None Cardiovascular History: Reports: Hypertension Respiratory History: Reports: None Gastrointestinal History: Reports: None Genitourinary History: Reports: None Musculoskeletal History: Reports: None Neurological History: Reports: Seizure Psychiatric History: Reports: ADHD, Anxiety, PTSD, Suicide Attempt, Suicidal Ideation, Other (See Below) Other Psychiatric History: delusion disorder. borderline personality Endocrine/Metabolic History: Reports: None Insulin Pump Model and Oil Transport Driver: None Hematologic History: Reports: None Immunologic History: Reports: None Oncologic (Cancer) History: Reports: None Dermatologic History: Reports: None - Infectious Disease History Infectious Disease History: Reports: Chicken Pox Other Infectious Disease History: Possible chicken pox as a child - Past Surgical History Head Surgeries/Procedures: Reports: None Musculoskeletal Surgical History: Reports: Shoulder Surgery Social & Family History - Family History Family Medical History: No Pertinent Family History - Caffeine Use Caffeine Use: Reports: None ED ROS GENERAL - Review of Systems Review Of Systems: Comprehensive ROS is negative, except as noted in HPI. ED EXAM, GENERAL - Physical Exam Exam: See Below (see dictation) Course - Vital Signs Last Recorded V/S: Last Vital Signs Temp 96.8 F L 01/25/21 16:31 Pulse 117 H 01/25/21 16:31 Resp 18 01/25/21 16:31 BP 150/91 H 01/25/21 16:31 Pulse Ox 95 01/25/21 16:31 - Orders/Labs/Meds Meds: Medications Discontinued Medications Generic Name Dose Route Start Last Admin Trade Name Bipin PRN Reason Stop Dose Admin Lorazepam 1 mg 01/25/21 16:02 01/25/21 16:21 Lorazepam 1 Mg Tab PO 01/25/21 16:03 1 mg ONETIME ONE Administration Departure - Departure Time of Disposition: 16:14 Disposition: Home, Self-Care 01 Clinical Impression: Anxiety - Discharge Information Instructions: Managing Anxiety, Adult Referrals: Leonardo Goncalves MD [Primary Care Provider] - Forms: ED Department Discharge Additional Instructions: The following information is given to patients seen in the emergency department who are being discharged to home. This information is to outline your options for follow-up care. We provide all patients seen in our emergency department with a follow-up referral. The need for follow-up, as well as the timing and circumstances, are variable depending upon the specifics of your emergency department visit. If you don't have a primary care physician on staff, we will provide you with a referral. We always advise you to contact your personal physician following an emergency department visit to inform them of the circumstance of the visit and for follow-up with them and/or the need for any referrals to a consulting specialist. The emergency department will also refer you to a specialist when appropriate. This referral assures that you have the opportunity for follow-up care with a specialist. All of these measure are taken in an effort to provide you with optimal care, which includes your follow-up. Under all circumstances we always encourage you to contact your private physician who remains a resource for coordinating your care. When calling for follow-up care, please make the office aware that this follow-up is from your recent emergency room visit. If for any reason you are refused follow-up, please contact the [facility] Department at and asked to speak to the emergency department charge nurse. [facility] [address] [place] [address] [place] [address] 1. Follow-up with her psychiatrist as discussed. Return to the ED as needed and as discussed. Sepsis Event Note (ED) - Evaluation Sepsis Screening Result: No Definite Risk - Focused Exam Vital Signs: Vital Signs Temp Pulse Resp BP Pulse Ox 01/25/21 16:31 96.8 F L 117 H 18 150/91 H 95 01/25/21 15:41 97.1 F 121 H 18 144/89 H 96
== END 2021-01-25 16:34 | disposition home or self-care (01) ==
LOC: MW.ED 15:35
DX: F41.9 Anxiety disorder, unspecified (principal); I10 Essential (primary) hypertension; Z79.899 Other long term (current) drug therapy
CPT/HCPCS: 99283; A9270

== ENCOUNTER 2021-01-30 04:57 | Emergency (ER) | payer MEDICAID ==
--- NOTE | 2021-01-30 05:44 | EDM.PDOC ---
ED HPI GENERAL MEDICAL PROBLEM - General Chief Complaint: Behavioral/Psych Stated Complaint: MIND IS RACING, CAN'T SLEEP Time Seen by Provider: 01/30/21 05:29 - History of Present Illness INITIAL COMMENTS - FREE TEXT/NARRATIVE: HISTORY AND PHYSICAL: History of present illness: This is a 30-year-old gentleman who presents ER today secondary to anxiety and racing thoughts. Patient reports that he is recently stopped off his ADHD medications. Patient presents ER today requesting that we write him for his ADHD meds or Ativan. Patient denies any recent fevers, shakes, chills, nausea, vomiting, diarrhea, seizure, frequency, urgency, chest pain, shortness of breath. Review of systems: As per history of present illness and below otherwise all systems reviewed and negative. Past medical history: As per history of present illness and as reviewed below otherwise noncontributory. Surgical history: As per history of present illness and as reviewed below otherwise noncontributory. Social history: No reported history of drug abuse. Family history: As per history of present illness and as reviewed below otherwise noncontributory. Physical exam: This patient was seen and evaluated during the 2019 SARS-CoV-2 novel coronavirus pandemic period. Community viral transmission is ongoing at time of this encounter and the emergency department is operating under pandemic response procedures. Constitutional: Patient is oriented to person, place, and time. Appears well- developed and well-nourished. No distress. HEENT: Moist mucous membranes Head: Normocephalic and atraumatic Eyes: Right eye exhibits no discharge. Left eye exhibits no discharge. No scleral icterus Neck: Normal range of motion. No tracheal deviation present. Cardiovascular: Normal rate and regular rhythm. Pulmonary: Effort normal, no respiratory distress. Abdominal: No distention Musculoskeletal: Normal range of motion Neurologic: Alert and oriented to person, place and time. Skin: [place], warm and dry. Psychiatric: Normal mood and affect. Behavior is normal. Judgment and thought content normal. Nursing note and vital signs have been reviewed Diagnostics: [] Therapeutics: [] Assessment and plan: This is a 30-year-old gentleman who presents to the ER today requesting medications for his ADHD or Ativan to help him get some rest. Patient reports that he has been pacing all day and it is upsetting his mother. I have explained to the patient that I would not write him a prescription for his Adderall as it is highly addictive medication and that this is something that would need to be controlled by a specialist. I have also advised him that I would not be able to write him for long-term benzodiazepines as this is also something I would need to be written by a specialist since it is a highly addictive medication. Patient became extremely aggressive and condescending when I explained that to him. I have explained to the patient that he will need to see a specialist within town to assist with writing any type of highly addictive medication of the ERs in an inappropriate way to be treated for his mental health issues. After already with me regarding why I am unable to write in his medications and accusing me of being willing to write it for him if he was rich, he finally said fine all just get an ambulance ride up to [place] so that they can write me for the medications. I advised patient that he can drive to [place] on his own at which point the patient started to threaten that he is suicidal so that he can be transferred to [place]. When I explained to the patient that his conditional suicidality would not be a condition for me to transfer him to [place] he became extremely upset and stated that he did not threaten that he would be suicidal just to go to [place]. He reported that he was requiring this conversation secretly without my consent in an attempt to prove to me that he did not actually say that. I feel that this patient is highly manipulative and is extremely drug-seeking and is wanting treatment with highly addictive medications with benzodiazepines and stimulants through the ED. I had recommended the patient follow-up with [facility] so they can assist him with an evaluation and so they can decide whether or not they thought that would be in his best interest. He did not like that recommendation as they had refused to in the past. Patient became verbally abusive to me at this time. At this time, I do not believe that the patient is homicidal or suicidal and feel that he is psychiatrically stable for discharge to follow-up with [facility] and to be seen by a specialist for his anxiety. Definitive disposition and diagnosis as appropriate pending reevaluation and review of above. - Related Data Allergies Allergy/AdvReac Type Severity Reaction Status Date / Time No Known Allergies Allergy Verified 01/13/21 14:12 Home Meds: Home Meds Losartan Potassium 50 mg PO DAILY 01/13/21 [History] Sertraline HCl 100 mg PO DAILY 01/13/21 [History] cloNIDine HCL [Clonidine HCl] 1 mg PO BID 01/13/21 [History] Prazosin HCl [Prazosin] 01/30/21 [History] Past Medical History HEENT History: Reports: None Cardiovascular History: Reports: Hypertension Respiratory History: Reports: None Gastrointestinal History: Reports: None Genitourinary History: Reports: None Musculoskeletal History: Reports: None Neurological History: Reports: Seizure Psychiatric History: Reports: ADHD, Anxiety, PTSD, Suicide Attempt, Suicidal Ideation, Other (See Below) Other Psychiatric History: delusion disorder. borderline personality Endocrine/Metabolic History: Reports: None Insulin Pump Model and Temperature Regulator: None Hematologic History: Reports: None Immunologic History: Reports: None Oncologic (Cancer) History: Reports: None Dermatologic History: Reports: None - Infectious Disease History Infectious Disease History: Reports: Chicken Pox Other Infectious Disease History: Possible chicken pox as a child - Past Surgical History Head Surgeries/Procedures: Reports: None Musculoskeletal Surgical History: Reports: Shoulder Surgery Social & Family History - Family History Family Medical History: No Pertinent Family History - Tobacco Use Tobacco Use Status *Q: Current Every Day Tobacco User Years of Tobacco use: 18 Packs/Tins Daily: 1 - Caffeine Use Caffeine Use: Reports: Coffee - Recreational Drug Use Recreational Drug Use: No ED ROS GENERAL - Review of Systems Review Of Systems: See Below ED EXAM, GENERAL - Physical Exam Exam: See Below Course - Vital Signs Last Recorded V/S: Last Vital Signs Temp 97.3 F 01/30/21 05:17 Pulse 120 H 01/30/21 05:17 Resp 20 01/30/21 05:17 BP 132/88 01/30/21 05:17 Pulse Ox 97 01/30/21 05:17 Departure - Departure Time of Disposition: 05:44 Disposition: Home, Self-Care 01 Condition: Good Clinical Impression: Anxiety, ADHD, Manipulative behavior, Drug-seeking behavior - Discharge Information Instructions: Managing Anxiety, Adult Referrals: Leonardo Goncalves MD [Primary Care Provider] - Forms: ED Department Discharge Additional Instructions: Please make an appointment to see [facility] this morning when they open so they can assist you with managing your anxiety and your ADHD medications. As we discussed, I do not feel comfortable is an ER physician denny ating you for long-term ADHD or anxiety. The following information is given to patients seen in the emergency department who are being discharged to home. This information is to outline your options for follow-up care. We provide all patients seen in our emergency department with a follow-up referral. The need for follow-up, as well as the timing and circumstances, are variable depending upon the specifics of your emergency department visit. If you don't have a primary care physician on staff, we will provide you with a referral. We always advise you to contact your personal physician following an emergency department visit to inform them of the circumstance of the visit and for follow-up with them and/or the need for any referrals to a consulting specialist. The emergency department will also refer you to a specialist when appropriate. This referral assures that you have the opportunity for follow-up care with a specialist. All of these measure are taken in an effort to provide you with optimal care, which includes your follow-up. Under all circumstances we always encourage you to contact your private physician who remains a resource for coordinating your care. When calling for follow-up care, please make the office aware that this follow-up is from your recent emergency room visit. If for any reason you are refused follow-up, please contact the Emergency Department at and asked to speak to the emergency department charge nurse. [facility] [address] [place] [address] [address] Sepsis Event Note (ED) - Evaluation Sepsis Screening Result: No Definite Risk - Focused Exam Vital Signs: Vital Signs Temp Pulse Resp BP Pulse Ox 01/30/21 05:17 97.3 F 120 H 20 132/88 97
== END 2021-01-30 05:48 | disposition home or self-care (01) ==
LOC: MW.ED 04:57
DX: F90.9 Attention-deficit hyperactivity disorder, unspecified type (principal); F41.9 Anxiety disorder, unspecified; I10 Essential (primary) hypertension; Z76.5 Malingerer [conscious simulation]; Z72.0 Tobacco use; Z79.899 Other long term (current) drug therapy
CPT/HCPCS: 99283

== ENCOUNTER 2021-02-19 20:40 | Emergency (ER) | payer MEDICAID ==
[2021-02-19] MEDS ORDERED: LORazepam 2 MG/ML SDV IVPUSH ONE (20:58)
[2021-02-19] MEDS ORDERED: Haloperidol Lactate 5 MG/ML SDV IM ONE (20:58)
--- NOTE | 2021-02-19 21:02 | EDM.PDOCBH ---
ED HPI GENERAL MEDICAL PROBLEM - General Chief Complaint: Behavioral/Psych Stated Complaint: suicidal thoughts Time Seen by Provider: 02/19/21 20:51 Source of Information: Reports: Patient History Limitations: Reports: No Limitations - History of Present Illness INITIAL COMMENTS - FREE TEXT/NARRATIVE: Patient is a 30-year-old male who states he has some complex depression disorder that he sees a specialized doctor for [place]. Patient states he presents today for suicide ideation. Patient is scheduled to see that physician in a few weeks cannot wait that long is having increasing thoughts of harming himself. He states that he has pulled himself and arm yesterday with a knife. He denies taking any drugs or alcohol. He also reports hearing voices as well. Patient c urrently denies any nausea vomiting fever chills or other complaints. generalized Pain Score (Numeric/FACES): 7 - Related Data Allergies Allergy/AdvReac Type Severity Reaction Status Date / Time No Known Allergies Allergy Verified 02/19/21 20:53 Home Meds: Home Meds Losartan Potassium 50 mg PO DAILY 01/13/21 [History] Sertraline HCl 100 mg PO DAILY 01/13/21 [History] cloNIDine HCL [Clonidine HCl] 1 mg PO BID 01/13/21 [History] Prazosin HCl [Prazosin] 01/30/21 [History] Past Medical History HEENT History: Reports: None Cardiovascular History: Reports: Hypertension Respiratory History: Reports: None Gastrointestinal History: Reports: None Genitourinary History: Reports: None Musculoskeletal History: Reports: None Neurological History: Reports: Seizure Psychiatric History: Reports: ADHD, Anxiety, PTSD, Suicide Attempt, Suicidal Ideation, Other (See Below) Other Psychiatric History: delusion disorder. borderline personality Endocrine/Metabolic History: Reports: None Insulin Pump Model and Enterprise Cloud Architect: None Hematologic History: Reports: None Immunologic History: Reports: None Oncologic (Cancer) History: Reports: None Dermatologic History: Reports: None - Infectious Disease History Infectious Disease History: Reports: Chicken Pox Other Infectious Disease History: Possible chicken pox as a child - Past Surgical History Head Surgeries/Procedures: Reports: None Musculoskeletal Surgical History: Reports: Shoulder Surgery Social & Family History - Family History Family Medical History: No Pertinent Family History - Tobacco Use Tobacco Use Status *Q: Current Every Day Tobacco User Years of Tobacco use: 13 Packs/Tins Daily: 1 - Caffeine Use Caffeine Use: Reports: Coffee - Recreational Drug Use Recreational Drug Use: No ED ROS GENERAL - Review of Systems Review Of Systems: See Below Constitutional: Reports: No Symptoms HEENT: Reports: No Symptoms Respiratory: Reports: No Symptoms Cardiovascular: Reports: No Symptoms Endocrine: Reports: No Symptoms GI/Abdominal: Reports: No Symptoms : Reports: No Symptoms Musculoskeletal: Reports: No Symptoms Skin: Reports: No Symptoms Neurological: Reports: No Symptoms Psychiatric: Reports: Suicidal Ideation Hematologic/Lymphatic: Reports: No Symptoms Immunologic: Reports: No Symptoms ED EXAM, BEHAVIORAL HEALTH - Physical Exam Exam: See Below Exam Limited By: No Limitations General Appearance: Alert, WD/WN, No Apparent Distress Head: Atraumatic Neck: Normal Inspection Respiratory/Chest: No Respiratory Distress, Lungs Clear Cardiovascular: Normal Peripheral Pulses, Regular Rate, Rhythm GI/Abdominal: Normal Bowel Sounds, Soft, Non-Tender Back Exam: Normal Inspection, Full Range of Motion Extremities: Normal Range of Motion, Non-Tender, Other (Small puncture wound to left forearm). No: Normal Inspection Neurological: Alert, CN II-XII Intact, Normal Cognition, Normal Gait Psychiatric: Alert, Normal Cognition, Oriented, Restless. No: Uncooperative, Flight of Ideas COURSE, BEHAVIORAL HEALTH COMP - Course Vital Signs: Last Vital Signs Temp 96.7 F L 02/19/21 20:49 Pulse 87 02/20/21 05:30 Resp 18 02/19/21 20:49 BP 111/57 L 02/20/21 05:30 Pulse Ox 94 L 02/20/21 05:30 Orders, Labs, Meds: Active Orders 24 hr Category Date Time Status Suicide Precautions [RC] Q30M Care 02/19/21 20:57 Active One To One Therapy [] Stat Oth 02/19/21 21:00 Ordered Special Observation [] Stat Oth 02/19/21 21:56 Ordered Laboratory Tests 02/19/21 02/19/21 02/19/21 Range/Units 21:08 21:08 21:08 WBC 11.70 H (4.0-11.0) K/uL RBC 4.91 (4.50-5.90) M/uL Hgb 16.0 (13.0-17.0) g/dL Hct 44.8 (38.0-50.0) % MCV 91.2 (80.0-98.0) fL MCH 32.6 H (27.0-32.0) pg MCHC 35.7 (31.0-37.0) g/dL RDW Std Deviation 42.9 (28.0-62.0) fl RDW Coeff of Marko 13 (11.0-15.0) % Plt Count 316 (150-400) K/uL MPV 10.40 (7.40-12.00) fL Add Manual Diff YES Neutrophils % (Manual) 48 (48.0-80.0) % Band Neutrophils % 6 % Lymphocytes % (Manual) 34 (16.0-40.0) % Monocytes % (Manual) 10 (0.0-15.0) % Eosinophils % (Manual) 2 (0.0-7.0) % Nucleated RBC % 0.0 /100WBC Absolute Seg Neuts 5.6 (1.4-5.7) Band Neutrophils # 0.7 Lymphocytes # (Manual) 4.0 H (0.6-2.4) Monocytes # (Manual) 1.2 H (0.0-0.8) Eosinophils # (Manual) 0.2 (0.0-0.7) Nucleated RBCs # 0 K/uL Sodium 138 (136-148) mmol/L Potassium 4.3 (3.5-5.1) mmol/L Chloride 99 (98-107) mmol/L Carbon Dioxide 26.6 (21.0-32.0) mmol/L BUN 19 H (7.0-18.0) mg/dL Creatinine 1.0 (0.8-1.3) mg/dL Est Cr Clr Drug Dosing 131.44 mL/min Estimated GFR (MDRD) > 60.0 ml/min Glucose 118 H (74-106) mg/dL Calcium 9.0 (8.5-10.1) mg/dL Phosphorus 6.0 H (2.6-4.7) mg/dL Magnesium 2.1 (1.8-2.4) mg/dL Total Bilirubin 0.3 (0.2-1.0) mg/dL AST 20 (15-37) IU/L ALT 56 (14-63) IU/L Alkaline Phosphatase 98 (46-116) U/L Total Protein 7.1 (6.4-8.2) g/dL Albumin 3.6 (3.4-5.0) g/dL Globulin 3.5 (2.6-4.0) g/dL Albumin/Globulin Ratio 1.0 (0.9-1.6) Salicylates 1.7 (0-20) mg/dL Urine Opiates Screen NEGATIVE (NEGATIVE) Ur Oxycodone Screen NEGATIVE (NEGATIVE) Urine Methadone Screen NEGATIVE (NEGATIVE) Acetaminophen <2.0 ug/mL Ur Barbiturates Screen NEGATIVE (NEGATIVE) Ur Phencyclidine Scrn NEGATIVE (NEGATIVE) Ur Amphetamine Screen NEGATIVE (NEGATIVE) U Methamphetamines Scrn NEGATIVE (NEGATIVE) U Benzodiazepines Scrn NEGATIVE (NEGATIVE) U Cocaine Metab Screen NEGATIVE (NEGATIVE) U Marijuana (THC) Screen NEGATIVE (NEGATIVE) Ethyl Alcohol 3 mg/dL SARS-CoV-2 RNA (AUNG) (NEGATIVE) 02/19/21 Range/Units 22:12 WBC (4.0-11.0) K/uL RBC (4.50-5.90) M/uL Hgb (13.0-17.0) g/dL Hct (38.0-50.0) % MCV (80.0-98.0) fL MCH (27.0-32.0) pg MCHC (31.0-37.0) g/dL RDW Std Deviation (28.0-62.0) fl RDW Coeff of Marko (11.0-15.0) % Plt Count (150-400) K/uL MPV (7.40-12.00) fL Add Manual Diff Neutrophils % (Manual) (48.0-80.0) % Band Neutrophils % % Lymphocytes % (Manual) (16.0-40.0) % Monocytes % (Manual) (0.0-15.0) % Eosinophils % (Manual) (0.0-7.0) % Nucleated RBC % /100WBC Absolute Seg Neuts (1.4-5.7) Band Neutrophils # Lymphocytes # (Manual) (0.6-2.4) Monocytes # (Manual) (0.0-0.8) Eosinophils # (Manual) (0.0-0.7) Nucleated RBCs # K/uL Sodium (136-148) mmol/L Potassium (3.5-5.1) mmol/L Chloride (98-107) mmol/L Carbon Dioxide (21.0-32.0) mmol/L BUN (7.0-18.0) mg/dL Creatinine (0.8-1.3) mg/dL Est Cr Clr Drug Dosing mL/min Estimated GFR (MDRD) ml/min Glucose (74-106) mg/dL Calcium (8.5-10.1) mg/dL Phosphorus (2.6-4.7) mg/dL Magnesium (1.8-2.4) mg/dL Total Bilirubin (0.2-1.0) mg/dL AST (15-37) IU/L ALT (14-63) IU/L Alkaline Phosphatase (46-116) U/L Total Protein (6.4-8.2) g/dL Albumin (3.4-5.0) g/dL Globulin (2.6-4.0) g/dL Albumin/Globulin Ratio (0.9-1.6) Salicylates (0-20) mg/dL Urine Opiates Screen (NEGATIVE) Ur Oxycodone Screen (NEGATIVE) Urine Methadone Screen (NEGATIVE) Acetaminophen ug/mL Ur Barbiturates Screen (NEGATIVE) Ur Phencyclidine Scrn (NEGATIVE) Ur Amphetamine Screen (NEGATIVE) U Methamphetamines Scrn (NEGATIVE) U Benzodiazepines Scrn (NEGATIVE) U Cocaine Metab Screen (NEGATIVE) U Marijuana (THC) Screen (NEGATIVE) Ethyl Alcohol mg/dL SARS-CoV-2 RNA (AUNG) NEGATIVE (NEGATIVE) Medications Discontinued Medications Generic Name Dose Route Start Last Admin Trade Name Freq PRN Reason Stop Dose Admin Haloperidol Lactate 5 mg 02/19/21 20:58 02/19/21 21:13 Haloperidol Lactate 5 Mg/Ml Sdv IM 02/19/21 20:59 5 mg ONETIME ONE Administration Lorazepam 2 mg 02/19/21 20:58 02/19/21 21:11 Lorazepam 2 Mg/Ml Sdv IVPUSH 02/19/21 20:59 2 mg ONETIME ONE Administration Medical Clearance: 02/19/21 21:56 Is medically cleared. We spoke to [facility] and they need a Covid test. We also do not have the ambulance to take the patient is our ambulance would not be back for the 7 hours they are another trip already. We will call [facility] again when we have transportation is closer. 02/20/21 05:38 Patient's been accepted to [facility] Shock Departure - Departure Time of Disposition: 04:30 Disposition: DC/Tfer to Psych Hosp/Unit 65 Condition: Good Clinical Impression: Suicidal ideation - Discharge Information Referrals: Leonardo Goncalves MD [Primary Care Provider] - Forms: ED Department Discharge Sepsis Event Note (ED) - Evaluation Sepsis Screening Result: No Definite Risk - Focused Exam Vital Signs: Vital Signs Temp Pulse Resp BP Pulse Ox 02/20/21 05:30 87 111/57 L 94 L 02/20/21 05:00 81 127/66 95 02/20/21 04:30 80 130/63 95 02/20/21 04:00 77 127/81 93 L 02/20/21 03:30 81 135/64 92 L 02/20/21 03:00 81 155/74 H 96 02/20/21 02:30 86 144/73 H 91 L 02/20/21 02:00 85 147/78 H 91 L 02/20/21 01:30 81 140/84 94 L 02/20/21 01:00 85 137/75 95 02/20/21 00:30 86 131/81 94 L 02/20/21 00:00 89 122/80 95 02/19/21 23:30 94 127/76 94 L 02/19/21 23:00 97 137/80 95 02/19/21 22:30 93 136/70 92 L 02/19/21 22:00 83 136/61 95 02/19/21 21:30 97 126/81 96 02/19/21 21:00 96 140/80 96 02/19/21 20:49 96.7 F L 99 18 140/80 96 - My Orders Last 24 Hours: My Active Orders 02/19/21 20:57 Suicide Precautions [RC] Q30M 02/19/21 21:00 One To One Therapy [] Stat 02/19/21 21:56 Special Observation [] Stat - Assessment/Plan Last 24 Hours: My Active Orders 02/19/21 20:57 Suicide Precautions [RC] Q30M 02/19/21 21:00 One To One Therapy [BH] Stat 02/19/21 21:56 Special Observation [] Stat Plan: Patient is a 30-year-old male brought in today for suicide ideation. Patient states he had thoughts of harm self compartments of the arm yesterday. There is no noticeable cut there is a small puncture wound to the left forearm. We will medically clear patient and try to transfer to the clinic for psychiatric placement.
[2021-02-19 21:32] LABS: ACETAMINOPHEN <2.0 ug/mL; BLOOD UREA NITROGEN,BUN 19 mg/dL (7.0-18.0); CARBON DIOXIDE,CO2 26.6 mmol/L (21.0-32.0); CHLORIDE,CL 99 mmol/L (98-107); GLUCOSE RANDOM 118 mg/dL (74-106); POTASSIUM,K 4.3 mmol/L (3.5-5.1); SODIUM,NA 138 mmol/L (136-148)
[2021-02-20] MEDS ORDERED: LORazepam 1 MG Tab PO ONE (06:03)
== END 2021-02-20 06:10 ==
LOC: MW.ED 20:40
DX: R45.851 Suicidal ideations (principal); I10 Essential (primary) hypertension; Z72.0 Tobacco use; Z79.899 Other long term (current) drug therapy; Z20.822 Contact with and (suspected) exposure to COVID-19
CPT/HCPCS: 36415; 80053; 80143; 80179; 80305; 80307; 83735; 84100; 85025; 87635; 96372; 96374; 99285; A9270; J1630; J2060; U0002

== ENCOUNTER 2021-04-27 14:17 | Emergency (ER) | payer MEDICAID ==
[2021-04-27] MEDS ORDERED: Sodium Chloride 0.9% 1,000 ML IV ONE (14:29)
[2021-04-27] MEDS ORDERED: Sodium Chloride 0.9% 10 ML Syringe FLUSH PRN (14:29)
[2021-04-27] MEDS ORDERED: Sodium Chloride 0.9% 2.5 ML Syringe FLUSH PRN (14:29)
[2021-04-27] MEDS ORDERED: Ondansetron 4 MG/2 ML SDV IVPUSH ONE (14:29)
[2021-04-27] MEDS ORDERED: Ketorolac 30 MG/ML SDV IVPUSH ONE (14:34)
--- NOTE | 2021-04-27 14:56 | EDM.PDOC ---
ED HPI GENERAL MEDICAL PROBLEM - General Chief Complaint: Abdominal Pain Stated Complaint: VOMMITTING, FATIGUE Time Seen by Provider: 04/27/21 14:18 Source of Information: Reports: Patient History Limitations: Reports: No Limitations - History of Present Illness INITIAL COMMENTS - FREE TEXT/NARRATIVE: HISTORY AND PHYSICAL: History of present illness: Patient is a 31-year-old male who presents to the emergency room with complaints of generalized abdominal pain, nausea, vomiting and diarrhea x 3 days. Patient states that the symptoms wax and wane and actually do feel improved since arriving to the emergency room. Patient denies any fever, chills, headache, change in vision, syncope or near syncope. Denies any chest pain, back pain, shortness of breath or cough. Denies any constipation or dysuria. Has not noted any blood in urine or stool. He does state he has a hemorrhoid that is bothering him due to the diarrhea. Patient has been eating and drinking appropriately. No recent travel or sick contacts. Review of systems: As per history of present illness and below otherwise all systems reviewed and negative. Past medical history: As per history of present illness and as reviewed below otherwise noncontributory. Surgical history: As per history of present illness and as reviewed below otherwise noncontributory. Social history: See social history for further information Family history: As per history of present illness and as reviewed below otherwise noncontributory. Physical exam: General: Well developed and well nourished 31-year-old male. Alert and orientated x 3. Nontoxic in appearance and in no acute distress. Vital signs are stable and have been reviewed by me. Nursing notes were reviewed. HEENT: Atraumatic, normocephalic, pupils equal and reactive bilaterally, negative for conjunctival pallor or scleral icterus, mucous membranes moist, TMs normal bilaterally, throat clear, neck supple, nontender, trachea midline. No drooling or trismus noted. No meningeal signs. No hot potato voice noted. Lungs: Clear to auscultation bilaterally. No wheezes, rales, or rhonchi. Chest nontender. Normal work of breathing, no accessory muscles used. Heart: S1S2, regular rate and rhythm without overt murmur, gallops, or rubs. No JVD. No peripheral edema Abdomen: Soft, nondistended, generalized tenderness in all 4 quadrants. Normoactive bowel sounds. Negative for masses or costovertebral tenderness. Skin: Intact, warm, dry. No lesions or rashes noted. Hematologic: No petechiae or purpra. Mucosa appropriate color and normal nail bed color and refill. Extremities: Atraumatic, moves all extremities per self without difficulty or deficits, negative for cords or calf pain. Neurovascular unremarkable. Neuro: Awake, alert, oriented. Cranial nerves II through XII unremarkable. Cerebellum unremarkable. Motor and sensory unremarkable throughout. Exam nonfocal. Psychiatric: Mood and affect are appropriate. Normal thought process. Answering questions appropriately. Please note that the patient was seen and evaluated during the 2019 SARS-CoV-2 novel coronavirus pandemic period. Community viral transmission is ongoing at time of this encounter and the emergency department is operating under pandemic response procedures. Medical Decision Making: Patient is a 31-year-old male who presents to the emergency room with complaints of GI symptoms. He states the symptoms come and go over the past 3 days and actually does feel improved today but would like to be evaluated. Physical exam is unremarkable with the exception of mild diffuse tenderness in all 4 quadrants. He states he does have a hemorrhoid that is irritating him due to the loose stools although denies any bleeding or blood in his stools. He states he was able to eat and drink prior to arrival without any vomiting but does feel slightly nauseated. States he is also developing a mild headache from vomiting last night. Rating his headache pain 1/10. We will do basic lab work and give IV fluids/medications. Patient does have a mild leukocytosis so we will CT his abdomen and pelvis to make sure there is no significant finding of infection. Although patient does state he feels much better since the IV fluids, Toradol and Zofran. CT is within normal limits. Patient is requesting to be discharged as he has "things to do". At this time I do not feel it warrants to investigate the leukocytosis any further. Vital signs are stable. I have talked with the patient about today's findings, in addition to providing specific details for plan of care. Reassessment at the time of disposition demonstrates that the patient is in no acute distress. The patient is stable for discharge, counseling was provided and we discussed in great detail signs and symptoms that would prompt them to return to the Emergency Department. Medication, follow up and supportive care measures were reviewed and discussed. Voices understanding and is agreeable to plan of care. Denies any further questions or concerns at this time. Diagnostics: CBC, CMP, Lipase, UA, CT abd/pelvis Therapeutics: IV fluids, Zofran, Toradol Prescription: Zofran Impression: Gastroenteritis Plan: 1. You were evaluated today on an emergent basis. Symptoms are likely viral in nature. Your COVID-19 is negative. Please use the Zofran as needed for nausea management. Small frequent sips of fluids to prevent dehydration. [place] diet, advance as tolerated. 2. You can alternate Tylenol and ibuprofen as needed for pain and fever management. 3. We encourage you to follow up with your primary care provider and/or recommended specialist in the next few days for re-evaluation and further care/management. 4. If your symptoms should worsen, new symptoms develop or any of the signs and symptoms we discussed should arise please return to the emergency room or call 911 (if needed). Definitive disposition and diagnosis as appropriate pending reevaluation and review of above. - Related Data Allergies Allergy/AdvReac Type Severity Reaction Status Date / Time No Known Allergies Allergy Verified 04/27/21 14:37 Home Meds: Home Meds Losartan Potassium 50 mg PO DAILY 01/13/21 [History] Sertraline HCl 100 mg PO DAILY 01/13/21 [History] Prazosin HCl [Prazosin] 01/30/21 [History] Amphetamine/Dextroamphetamine [Adderall XR] 04/27/21 [History] Ondansetron [Zofran ODT] 4 mg PO Q6H PRN #8 tab.dis 04/27/21 [Rx] clonazePAM [Clonazepam] 04/27/21 [History] Past Medical History HEENT History: Reports: None Cardiovascular History: Reports: Hypertension Respiratory History: Reports: None Gastrointestinal History: Reports: None Genitourinary History: Reports: None Musculoskeletal History: Reports: None Neurological History: Reports: Seizure Psychiatric History: Reports: ADHD, Anxiety, PTSD, Suicide Attempt, Suicidal Ideation, Other (See Below) Other Psychiatric History: delusion disorder. 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 Hematologic History: Reports: None Immunologic History: Reports: None Oncologic (Cancer) History: Reports: None Dermatologic History: Reports: None - Infectious Disease History Infectious Disease History: Reports: Chicken Pox Other Infectious Disease History: Possible chicken pox as a child - Past Surgical History Head Surgeries/Procedures: Reports: None Musculoskeletal Surgical History: Reports: Shoulder Surgery Social & Family History - Family History Family Medical History: No Pertinent Family History - Tobacco Use Second Hand Smoke Exposure: No - Caffeine Use Caffeine Use: Reports: None - Recreational Drug Use Recreational Drug Use: No ED ROS GENERAL - Review of Systems Review Of Systems: Comprehensive ROS is negative, except as noted in HPI. ED EXAM, GI/ABD - Physical Exam Exam: See Below (See dictation) Course - Vital Signs Last Recorded V/S: Last Vital Signs Temp 98.6 F 04/27/21 14:37 Pulse 88 04/27/21 17:23 Resp 16 04/27/21 17:23 BP 123/74 04/27/21 17:23 Pulse Ox 97 04/27/21 17:23 - Orders/Labs/Meds Orders: Active Orders 24 hr Category Date Time Status Saline Lock Insert [OM.PC] Stat Oth 04/27/21 14:29 Ordered Labs: Laboratory Tests 04/27/21 04/27/21 04/27/21 Range/Units 14:30 14:52 14:52 WBC 13.69 H (4.0-11.0) K/uL RBC 5.24 (4.50-5.90) M/uL Hgb 16.7 (13.0-17.0) g/dL Hct 48.0 (38.0-50.0) % MCV 91.6 (80.0-98.0) fL MCH 31.9 (27.0-32.0) pg MCHC 34.8 (31.0-37.0) g/dL RDW Std Deviation 44.3 (28.0-62.0) fl RDW Coeff of Marko 13 (11.0-15.0) % Plt Count 272 (150-400) K/uL MPV 10.60 (7.40-12.00) fL Neut % (Auto) 85.7 H (48.0-80.0) % Lymph % (Auto) 4.9 L (16.0-40.0) % [place] % (Auto) 7.7 (0.0-15.0) % Eos % (Auto) 1.6 (0.0-7.0) % Baso % (Auto) 0.1 (0.0-1.5) % Neut # (Auto) 11.7 H (1.4-5.7) K/uL Lymph # (Auto) 0.7 (0.6-2.4) K/uL [place] # (Auto) 1.1 H (0.0-0.8) K/uL Eos # (Auto) 0.2 (0.0-0.7) K/uL Baso # (Auto) 0.0 (0.0-0.1) K/uL Nucleated RBC % 0.0 /100WBC Nucleated RBCs # 0 K/uL Sodium 137 (136-148) mmol/L Potassium 4.2 (3.5-5.1) mmol/L Chloride 101 (98-107) mmol/L Carbon Dioxide 26.1 (21.0-32.0) mmol/L BUN 15 (7.0-18.0) mg/dL Creatinine 0.9 (0.8-1.3) mg/dL Est Cr Clr Drug Dosing 140.81 mL/min Estimated GFR (MDRD) > 60.0 ml/min Glucose 110 H (74-106) mg/dL Calcium 9.0 (8.5-10.1) mg/dL Total Bilirubin 0.5 (0.2-1.0) mg/dL AST 19 (15-37) IU/L ALT 42 (14-63) IU/L Alkaline Phosphatase 97 (46-116) U/L Total Protein 7.8 (6.4-8.2) g/dL Albumin 3.8 (3.4-5.0) g/dL Globulin 4.0 (2.6-4.0) g/dL Albumin/Globulin Ratio 0.9 (0.9-1.6) Lipase 48 L (73-393) U/L Urine Color Urine Appearance Urine pH (5.0-8.0) Ur Specific [place] (1.001-1.035) Urine Protein (NEGATIVE) mg/dL Urine Glucose (UA) (NEGATIVE) mg/dL Urine Ketones (NEGATIVE) mg/dL Urine Occult Blood (NEGATIVE) Urine Nitrite (NEGATIVE) Urine Bilirubin (NEGATIVE) Urine Urobilinogen (<2.0) EU/dL Ur Leukocyte Esterase (NEGATIVE) SARS-CoV-2 RNA (AUNG) NEGATIVE (NEGATIVE) 04/27/21 Range/Units 16:18 WBC (4.0-11.0) K/uL RBC (4.50-5.90) M/uL Hgb (13.0-17.0) g/dL Hct (38.0-50.0) % MCV (80.0-98.0) fL MCH (27.0-32.0) pg MCHC (31.0-37.0) g/dL RDW Std Deviation (28.0-62.0) fl RDW Coeff of Marko (11.0-15.0) % Plt Count (150-400) K/uL MPV (7.40-12.00) fL Neut % (Auto) (48.0-80.0) % Lymph % (Auto) (16.0-40.0) % [place] % (Auto) (0.0-15.0) % Eos % (Auto) (0.0-7.0) % Baso % (Auto) (0.0-1.5) % Neut # (Auto) (1.4-5.7) K/uL Lymph # (Auto) (0.6-2.4) K/uL [place] # (Auto) (0.0-0.8) K/uL Eos # (Auto) (0.0-0.7) K/uL Baso # (Auto) (0.0-0.1) K/uL Nucleated RBC % /100WBC Nucleated RBCs # K/uL Sodium (136-148) mmol/L Potassium (3.5-5.1) mmol/L Chloride (98-107) mmol/L Carbon Dioxide (21.0-32.0) mmol/L BUN (7.0-18.0) mg/dL Creatinine (0.8-1.3) mg/dL Est Cr Clr Drug Dosing mL/min Estimated GFR (MDRD) ml/min Glucose (74-106) mg/dL Calcium (8.5-10.1) mg/dL Total Bilirubin (0.2-1.0) mg/dL AST (15-37) IU/L ALT (14-63) IU/L Alkaline Phosphatase (46-116) U/L Total Protein (6.4-8.2) g/dL Albumin (3.4-5.0) g/dL Globulin (2.6-4.0) g/dL Albumin/Globulin Ratio (0.9-1.6) Lipase (73-393) U/L Urine Color YELLOW Urine Appearance CLEAR Urine pH 7.0 (5.0-8.0) Ur Specific [place] 1.020 (1.001-1.035) Urine Protein NEGATIVE (NEGATIVE) mg/dL Urine Glucose (UA) NEGATIVE (NEGATIVE) mg/dL Urine Ketones NEGATIVE (NEGATIVE) mg/dL Urine Occult Blood NEGATIVE (NEGATIVE) Urine Nitrite NEGATIVE (NEGATIVE) Urine Bilirubin NEGATIVE (NEGATIVE) Urine Urobilinogen 0.2 (<2.0) EU/dL Ur Leukocyte Esterase NEGATIVE (NEGATIVE) SARS-CoV-2 RNA (AUNG) (NEGATIVE) Meds: Medications Discontinued Medications Generic Name Dose Route Start Last Admin Trade Name Freq PRN Reason Stop Dose Admin Sodium Chloride 1,000 mls @ 999 mls/hr 04/27/21 14:29 04/27/21 14:52 Normal Saline IV 04/27/21 15:29 999 mls/hr STAT ONE Administration Iopamidol 100 ml 04/27/21 16:36 04/27/21 16:37 Iopamidol 755 Mg/Ml 500 Ml Multipack Bottle IVPUSH 04/27/21 16:37 100 ml ONETIME STA Administration Ketorolac Tromethamine 30 mg 04/27/21 14:34 04/27/21 14:53 Ketorolac 30 Mg/Ml Sdv IVPUSH 04/27/21 14:35 30 mg ONETIME ONE Administration Ondansetron HCl 4 mg 04/27/21 14:29 04/27/21 14:52 Ondansetron 4 Mg/2 Ml Sdv IVPUSH 04/27/21 14:30 4 mg ONETIME ONE Administration Sodium Chloride 10 ml 04/27/21 14:29 04/27/21 14:54 Sodium Chloride 0.9% 10 Ml Syringe FLUSH 10 ml ASDIRECTED PRN Administration Keep Vein Open Sodium Chloride 2.5 ml 04/27/21 14:29 04/27/21 14:54 Sodium Chloride 0.9% 2.5 Ml Syringe FLUSH 2.5 ml ASDIRECTED PRN Administration Keep Vein Open Departure - Departure Time of Disposition: 17:16 Disposition: Home, Self-Care 01 Clinical Impression: Gastroenteritis - Discharge Information Prescriptions: Ondansetron [Zofran ODT] 4 mg PO Q6H PRN #8 tab.dis PRN Reason: Nausea Instructions: Viral Gastroenteritis, Adult, [id number] Referrals: Leonardo Goncalves MD [Primary Care Provider] - Forms: ED Department Discharge Additional Instructions: The following information is given to patients seen in the emergency department who are being discharged to home. This information is to outline your options for follow-up care. We provide all patients seen in our emergency department with a follow-up referral. The need for follow-up, as well as the timing and circumstances, are variable depending upon the specifics of your emergency department visit. If you don't have a primary care physician on staff, we will provide you with a referral. We always advise you to contact your personal physician following an emergency department visit to inform them of the circumstance of the visit and for follow-up with them and/or the need for any referrals to a consulting specialist. The emergency department will also refer you to a specialist when appropriate. This referral assures that you have the opportunity for follow-up care with a specialist. All of these measure are taken in an effort to provide you with optimal care, which includes your follow-up. Under all circumstances we always encourage you to contact your private physician who remains a resource for coordinating your care. When calling for follow-up care, please make the office aware that this follow-up is from your recent emergency room visit. If for any reason you are refused follow-up, please contact the [facility] Emergency Department at and asked to speak to the emergency department charge nurse. [facility] [address] [place] [id number] [address] [address] Thank you for choosing the [facility] emergency department in [place] for your medical needs today. It was a pleasure caring for you. Today you were seen in the emergency department for GI symptoms. 1. You were evaluated today on an emergent basis. Symptoms are likely viral in nature. Your COVID-19 is negative. Please use the Zofran as needed for nausea management. Small frequent sips of fluids to prevent dehydration. [place] diet, advance as tolerated. 2. You can alternate Tylenol and ibuprofen as needed for pain and fever management. 3. We encourage you to follow up with your primary care provider and/or recommended specialist in the next few days for re-evaluation and further care/management. 4. If your symptoms should worsen, new symptoms develop or any of the signs and symptoms we discussed should arise please return to the emergency room or call 911 (if needed). Sepsis Event Note (ED) - Evaluation Sepsis Screening Result: No Definite Risk - My Orders Last 24 Hours: My Active Orders 04/27/21 14:29 Saline Lock Insert [OM.PC] Stat - Assessment/Plan Last 24 Hours: My Active Orders 04/27/21 14:29 Saline Lock Insert [OM.PC] Stat
[2021-04-27 15:49] LABS: BLOOD UREA NITROGEN,BUN 15 mg/dL (7.0-18.0); CARBON DIOXIDE,CO2 26.1 mmol/L (21.0-32.0); CHLORIDE,CL 101 mmol/L (98-107); GLUCOSE RANDOM 110 mg/dL (74-106); LIPASE 48 U/L (73-393); POTASSIUM,K 4.2 mmol/L (3.5-5.1); SODIUM,NA 137 mmol/L (136-148)
[2021-04-27] MEDS ORDERED: Iopamidol 755 MG/ML 500 ML Multipack Bottle IVPUSH STA (16:36)
--- NOTE | 2021-04-27 17:13 | CT ---
INDICATION: Abdominal pain. TECHNIQUE: CT abdomen and pelvis acquired with 100 cc Isovue 370 IV contrast. COMPARISON: None. FINDINGS: Lower chest: Unremarkable. Liver: Unremarkable. Normal in size and attenuation. No suspicious masses. Gallbladder and bile ducts: Unremarkable. No stones or inflammation. No biliary dilatation. Pancreas: Unremarkable. No mass or inflammation. Spleen: Unremarkable. Normal in size. No masses. Adrenal glands: Unremarkable. No nodules. Kidneys: Unremarkable. No suspicious masses, stones, or hydronephrosis. GI tract: Unremarkable. Normal in caliber. No sign of mass or inflammation. Normal appendix. 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 Abdominal aorta is normal in caliber. Mesenteric arteries are patent. Lymph nodes: No lymphadenopathy. Omentum/Peritoneum/Abdominal Wall: Unremarkable. No sign of mass or infiltration. No free air or significant free fluid. Pelvis: Unremarkable. Bones: Unremarkable for age. IMPRESSION: Please note that all CT scans at this facility use dose modulation, iterative reconstruction, and/or weight-based dosing when appropriate to reduce radiation dose to as low as reasonably achievable. Dictated by Richar Jones MD @ 04/27/2021 5:11:56 PM (Electronically Signed)
== END 2021-04-27 17:24 | disposition home or self-care (01) ==
LOC: MW.ED 14:17
DX: K52.9 Noninfective gastroenteritis and colitis, unspecified (principal); I10 Essential (primary) hypertension; Z20.822 Contact with and (suspected) exposure to COVID-19
CPT/HCPCS: 36415; 74177; 80053; 81003; 83690; 85025; 87635; 96374; 96375; 99284; J1885; J2405; J7030; Q9967; U0002

== ENCOUNTER 2021-06-11 23:29 | Emergency (ER) | payer BC, MEDICAID ==
[2021-06-12] MEDS ORDERED: Ziprasidone HCl 20 MG Cap PO STA (00:54)
[2021-06-12] MEDS ORDERED: Sodium Chloride 0.9% 2.5 ML Syringe FLUSH PRN (00:55)
[2021-06-12] MEDS ORDERED: Sodium Chloride 0.9% 10 ML Syringe FLUSH PRN (00:55)
[2021-06-12] MEDS ORDERED: diphenhydrAMINE 25 MG Cap PO ONE (00:55)
[2021-06-12] MEDS ORDERED: ALPRAZolam 0.5 MG Tab PO ONE (00:55)
== END 2021-06-12 02:38 | disposition home or self-care (01) ==
LOC: MW.ED 23:29
DX: F22 Delusional disorders (principal); I10 Essential (primary) hypertension; Z79.899 Other long term (current) drug therapy
CPT/HCPCS: 93005; 99285-25; A9270-GY

== ENCOUNTER 2021-06-16 22:03 | Emergency (ER) | payer MEDICAID ==
[2021-06-16] MEDS ORDERED: Albuterol 8 GM Inhaler INH SCH (23:15)
[2021-06-16 23:38] LABS: ACETAMINOPHEN <2.0 ug/mL; BLOOD UREA NITROGEN,BUN 16 mg/dL (7.0-18.0); CARBON DIOXIDE,CO2 26.6 mmol/L (21.0-32.0); CHLORIDE,CL 101 mmol/L (98-107); GLUCOSE RANDOM 107 mg/dL (74-106); POTASSIUM,K 3.6 mmol/L (3.5-5.1); SODIUM,NA 137 mmol/L (136-148)
== END 2021-06-17 01:22 | disposition home or self-care (01) ==
LOC: MW.ED 22:03
DX: R45.851 Suicidal ideations (principal); F20.9 Schizophrenia, unspecified; I10 Essential (primary) hypertension; Z79.899 Other long term (current) drug therapy
CPT/HCPCS: 36415; 80053; 80143; 80179; 80305; 80307; 81003; 83735; 84443; 85025; 99284; A9270

== ENCOUNTER 2022-04-28 11:25 | Emergency (ER) | payer MEDICAID ==
[2022-04-28] MEDS ORDERED: LORazepam 1 MG Tab PO ONE (12:06)
[2022-04-28 13:05] LABS: BLOOD UREA NITROGEN,BUN 14 mg/dL (7.0-18.0); CHLORIDE,CL 100 mmol/L (98-107); GLUCOSE RANDOM 139 mg/dL (74-106); POTASSIUM,K 4.3 mmol/L (3.5-5.1); SODIUM,NA 137 mmol/L (136-148)
[2022-04-28 13:17] LABS: ESTIMATED GFR 118 mL/min (>60)
== END 2022-04-28 13:49 | disposition left against medical advice (07) ==
LOC: MW.ED 11:25
DX: F41.0 Panic disorder [episodic paroxysmal anxiety] (principal); I10 Essential (primary) hypertension; Z79.899 Other long term (current) drug therapy
CPT/HCPCS: 36415; 80053; 83735; 85025; 93005; 99283; A9270

== ENCOUNTER 2024-06-02 11:22 | Emergency (ER) | payer MEDICAID ==
[2024-06-02] MEDS: Benzocaine 20% Topical Spray UD MUCMEM ONE (11:45)
[2024-06-02] MEDS: Ibuprofen 800 MG Tab PO ONE (11:45)
[2024-06-02] MEDS: Lidocaine 2% Viscous Solution 15 ML UD PO ONE (11:45)
== END 2024-06-02 11:49 | disposition home or self-care (01) ==
LOC: MW.ED 11:22
DX: K04.7 Periapical abscess without sinus (principal); I10 Essential (primary) hypertension; Z79.899 Other long term (current) drug therapy; Z75.8 Other problems related to medical facilities and other health care
CPT/HCPCS: 99283; A9270

== ENCOUNTER 2024-06-05 14:19 | Emergency (ER) | payer MEDICAID ==
[2024-06-05] MEDS: Lidocaine 1% PF 2 ML SDV INJECT ONE (14:37)
[2024-06-05] MEDS: Benzocaine 20% Topical Spray UD MUCMEM ONE (14:59)
[2024-06-05] MEDS: Lidocaine 2% Viscous Solution 15 ML UD PO ONE (14:59)
== END 2024-06-05 15:31 | disposition home or self-care (01) ==
LOC: MW.ED 14:19
DX: K04.7 Periapical abscess without sinus (principal); I10 Essential (primary) hypertension; Z79.899 Other long term (current) drug therapy
CPT/HCPCS: 41800; 99282; A9270; J3490